=== PATIENT | female | born 1935 | race Caucasian/White ===

== ENCOUNTER → 2016-10-05 | Outpatient (CLI) | payer OTHER ==
[~2016-10-05] MED LIST: APR25 PO; ASCA500 PO; ATV5 PO; BXN500 PO; CTP1CL PO; CZR50 PO; FAMO1TAB47 PO; GLUC1CAP35 PO; MISCCAP80 PO; VTMD1000 PO
[2016-10-05 12:42] LABS: BASO % 0.6 %; BASO ABS # 0.05 K/uL (0-0.2); COMPLETE YES; EOS % 1.6 %; HEMATOCRIT 38.3 % (37-47); IG% 0.3 %; LYMPH % 27.7 %; LYMPH ABS # 2.39 K/uL (1.2-3.4); MEAN CELL VOLUME 89.3 fL (80-100); MEAN CORPUSCULAR HEMOGLOBIN 29.6 pg (25-34); MEAN CORPUSCULAR HGB CONC 33.2 g/dl (32-36); MEAN PLATELET VOLUME 10.8 fL (7.4-10.4); NEUT % 63.8 %; PLATELET COUNT 291 K/uL (130-400); RED BLOOD COUNT 4.29 M/uL (4.2-5.4); WHITE BLOOD COUNT 8.63 K/uL (4.8-10.8)
[2016-10-05 13:22] LABS: ALT/SGPT 47 U/L (12-78); AST/SGOT 31 U/L (15-37); BLOOD UREA NITROGEN 16 mg/dl (7-18); BUN/CREATININE RATIO 17.6 (10-20); CALCIUM 8.7 mg/dl (8.5-10.1); CARBON DIOXIDE 24 mmol/L (21-32); CHLORIDE 109 mmol/L (98-107); CHOLESTEROL 238 mg/dl (0-200); CREATININE 0.92 mg/dl (0.60-1.20); GLUCOSE 90 mg/dl (70-99); POTASSIUM 3.6 mmol/L (3.5-5.1); SODIUM 143 mmol/L (136-145); TRIGLYCERIDES 147 mg/dl (0-150); VERY LOW DENSITY LIPOPROT CALC 29 mg/dl
[2016-10-05 13:32] LABS: ALB/GLOB RATIO 0.8 (0.9-2); ALKALINE PHOSPHATASE 134 U/L (45-117); CHOLESTEROL/HDL RATIO 3.4; HDL CHOLESTEROL 71 mg/dl; LDL CHOLESTEROL CALCULATED 138 mg/dl
[2016-10-05 15:19] LABS: LYME DISEASE AB IGG POS (NEG); LYME DISEASE AB IGM POS (NEG)
[2016-10-09 22:50] LABS: 18KDIGG BAND REACTIVE (NONREACTIVE); 23KDIGG BAND NONREACTIVE (NONREACTIVE); 23KDIGM BAND REACTIVE (NONREACTIVE); 28KDIGG BAND NONREACTIVE (NONREACTIVE); 30KDIGG BAND NONREACTIVE (NONREACTIVE); 39KDIGG BAND NONREACTIVE (NONREACTIVE); 39KDIGM BAND NONREACTIVE (NONREACTIVE); 41KDIGG BAND REACTIVE (NONREACTIVE); 41KDIGM BAND NONREACTIVE (NONREACTIVE); 45KDIGG BAND NONREACTIVE (NONREACTIVE); 58KDIGG BAND REACTIVE (NONREACTIVE); 66KDIGG BAND NONREACTIVE (NONREACTIVE); 93KDIGG BAND NONREACTIVE (NONREACTIVE)
== END | disposition home or self-care (01) ==
LOC: C.LABBFT 11:29
PROVIDERS: ATTEND Internal Medicine Geriatric Medicine
DX: I10 Essential (primary) hypertension (principal); E78.5 Hyperlipidemia, unspecified; M79.7 Fibromyalgia; R21 Rash and other nonspecific skin eruption

== ENCOUNTER → 2017-01-12 | Outpatient (CLI) | payer OTHER ==
[2017-01-12 17:51] LABS: CALCIUM 9.1 mg/dl (8.5-10.1)
[2017-01-12 17:55] LABS: BLOOD UREA NITROGEN 19 mg/dl (7-18); BUN/CREATININE RATIO 19.4 (10-20); CARBON DIOXIDE 29 mmol/L (21-32); CHLORIDE 108 mmol/L (98-107); GLUCOSE 78 mg/dl (70-99); SODIUM 141 mmol/L (136-145)
[2017-01-13 05:53] LABS: ESTIMATED AVERAGE GLUCOSE 120 mg/dl; HA1C FLAG Normal (Normal)
--- NOTE | 2017-01-18 07:05 | CODING QUERY MEDICAL NECESSITY ---
SUPPORTING DIAGNOSIS NEEDED Salud JACKSON, A supporting diagnosis is required for the test/procedure performed on this patient in order for us to be reimbursed by the patient's insurance. Please provide a supporting diagnosis for the following test/procedure listed below next to the test name along with your signature. *If there is no additional diagnosis for this patient that would support the following test/procedure please document that below next to the test/procedure. Test(s)/Procedure(s) that require a supporting diagnosis: * ([id number]) B12 VITAMIN LEVEL DIAGNOSIS: * [id number] GLYCATED HEMOGLOBIN DIAGNOSIS: DATE OF SERVICE: 01/12/17 Provider Signature: Date: Thank you Jose Armando Fong Health Information Management Once completed, please kindly fax back to [phone] For questions please call [phone]
== END | disposition home or self-care (01) ==
LOC: C.LABBC 13:49
PROVIDERS: ATTEND Physician Assistant Medical
DX: M79.671 Pain in right foot (principal); M79.672 Pain in left foot; E55.9 Vitamin D deficiency, unspecified; I10 Essential (primary) hypertension; R20.2 Paresthesia of skin; R73.9 Hyperglycemia, unspecified

== ENCOUNTER 2017-02-13 16:10 | Emergency (ER) | payer OTHER ==
[~2017-02-13] VITALS: Ht 163.8 cm; Wt 65.8 kg
[~2017-02-13 16:10] MED LIST changes: -BXN500 PO; -CTP1CL PO; -CZR50 PO; -FAMO1TAB47 PO
[2017-02-13 16:23] VITALS: BP 160/86; PULSE 93; TEMP 36.4; O2SAT 96; Ht 163.8 cm; Wt 65.8 kg
[2017-02-13] MEDS ORDERED: CZR50 PO (16:46)
[2017-02-13] MEDS ORDERED: FAMO1TAB47 PO (16:46)
[2017-02-13] MEDS ORDERED: CTP1CL PO (16:46)
[2017-02-13] MEDS ORDERED: BXN500 PO (16:46)
--- NOTE | 2017-02-13 17:08 | EMERGENCY ROOM VISIT NOTE ---
History Report prepared by Vincenzo: Francis Noble Under the Supervision of: Dr. David Bucio D.O. First contact with patient: 16:48 Chief Complaint: ILLNESS Stated Complaint: SICK FROM CLARYTHROMYCIN History of Present Illness The patient is an 81 year old female who presents to the Emergency Room with complaints of a possible acute reaction to Clarithromycin. The patient had a tick bite three weeks ago. She has been on Clarithromycin for 10 days. She has 4 days left of the course. The patient has a history of allergies to many different antibiotics. She now complains several days of generalized malaise, mouth soreness, and a burning sensation in her stomach. She can barely swallow secondary to her mouth soreness. The patient's symptoms are similar to past reactions to antibiotics. She would like to stop taking the Clarithromycin before the course is finished. Source of History: patient Onset: several days ago Position: other (global) Quality: other (possible reaction to Clarithromycin) Timing: other (acute) Associated Symptoms: + abdominal pain Note: + mouth soreness, feeling generally unwell Review of Systems See HPI for pertinent positives & negatives. A total of 10 systems reviewed and were otherwise negative. Past Medical & Surgical Medical Problems: (1) Anxiety (2) Bronchitis (3) Hypertension (4) Hypertensive urgency (5) Lyme disease (6) Pneumonia (7) Rosacea (8) Ulcer Family History FHx: hypertension Social History Smoking Status: Never Smoker Alcohol Use: none Drug Use: none Marital Status: Housing Status: lives alone Occupation Status: retired Current/Historical Medications Scheduled Cholecalciferol (Vitamin D3), 1,000 UNITS PO DAILY Clarithromycin (Clarithromycin), 500 MG PO BID Famotidine (Famotidine), 20 MG PO BID Qpbgzobahag-Ymjkoxreruh-Udh C- (Glucosamine Chondroitin), 1 CAP PO DAILY Lorazepam (Ativan *), 0.5 MG PO Q6HR PRN Losartan Potassium (Losartan Potassium), 50 MG PO BID Probiotic Product (Probiotic), 1 CAP PO DAILY Allergies Coded Allergies: Amlodipine (Verified Allergy, Severe, CHEST HEAVINESS, BACK PAIN, 02/13/17) Lisinopril (Verified Allergy, Severe, CHEST HEAVINESS, BACK PAIN, 02/13/17) Telmisartan (Verified Allergy, Severe, CHEST HEAVINESS, BACK PAIN, 02/13/17 ) Liver (Verified Allergy, Intermediate, HIVES, 02/13/17) Phenylmercuric Nitrate (Verified Allergy, Intermediate, HIVES, 02/13/17) Shark Liver Oil (Verified Allergy, Intermediate, HIVES, 02/13/17) Sulfa Antibiotics (Verified Allergy, Intermediate, rash, 02/13/17) Acetaminophen (Verified Allergy, Unknown, UNKNOWN, 02/13/17) Clarithromycin (Unverified Allergy, Unknown, RASH, COTTON MOUTH, 02/13/17) Doxycycline (Verified Allergy, Unknown, UNK, 02/13/17) Penicillins (Verified Allergy, Unknown, UNKNOWN, 02/13/17) Physical Exam Vital Signs Date Time Temp Pulse Resp B/P (MAP) Pulse Ox O2 Delivery O2 Flow Rate FiO2 02/13/17 16:23 36.4 93 20 160/86 96 Room Air Physical Exam CONSTITUTIONAL/VITAL SIGNS: Reviewed / noted above. GENERAL: Non-toxic in appearance. INTEGUMENTARY: Warm, dry, and [place]. HEAD: Normocephalic. EYES: without scleral icterus or trauma. ENT/OROPHARYNX: clear and moist. LYMPHADENOPATHY/NECK: Is supple without lymphadenopathy or meningismus. RESPIRATORY: Lungs clear and equal. CARDIOVASCULAR: Regular rate and rhythm. GI/ABDOMEN: Soft and nontender. No organomegaly or pulsatile mass. No rebound or guarding. Normal bowel sounds. EXTREMITIES: Warm and well perfused. BACK: No CVA tenderness. NEUROLOGICAL: Intact without focal deficits. PSYCHIATRIC: normal affect. MUSCULOSKELETAL: Normally developed with good muscle tone. Medical Decision & Procedures ED Course 1655: Previous medical records were reviewed. The patient was evaluated in room A4b. A complete history and physical examination was performed. 1700: Discussed the discharge instructions with her. She understands and agrees with the plan. The patient is ready for discharge. Medical Decision Differential diagnosis: Etiologies such as metabolic, infection, hypo/hyperglycemia, electrolyte abnormalities, cardiac sources, intracerebral event, toxicologic, neurologic, as well as others were entertained. Blood pressure Screening: Patient was found to have an elevated blood pressure and was referred to their primary doctor for recheck and further treatment. Medication Reconciliation: I attest that I have personally reviewed the patient' s current medication list. The patient presents with a chief complaint of having side effects of antibiotics. She is on clarithromycin for the past 10 days for erythema migrans. She is requesting to stop the antibiotics. She has 4 more days prescribed. She is complaining of burning in her mouth, pain with swallowing and a burning sensation in her stomach. She says these are typical side effects that she has had previously with taking antibiotics. The patient denies any other significant symptoms. Her exam was unremarkable. She was told to discontinue her antibiotics. She is felt to be stable for discharge. Impression Primary Impression: Medication side effects Scribe Attestation The scribe's documentation has been prepared under my direction and personally reviewed by me in its entirety. I confirm that the note above accurately reflects all work, treatment, procedures, and medical decision making performed by me. Departure Information Dispostion Home / Self-Care Referrals Luigi Jiang M.D. (PCP) Patient Instructions My [facility] Additional Instructions Follow-up with your doctor for further care and evaluation in 1-2 days. Return to the emergency department for worsening or new symptoms or any concerns. You have been examined and treated today on an emergency basis only. This is not a substitute for, or an effort to provide, complete comprehensive medical care. It is impossible to recognize and treat all injuries or illnesses in a single emergency department visit. It is therefore important that you follow up closely with your doctor. Call as soon as possible for an appointment. Stop your antibiotics.
== END 2017-02-13 17:15 | disposition home or self-care (01) ==
LOC: C.EDB 16:11 → C.EDA 17:15
DX: R53.81 Other malaise (principal); T36.3X5A Adverse effect of macrolides, initial encounter; F41.9 Anxiety disorder, unspecified; I10 Essential (primary) hypertension; Z87.01 Personal history of pneumonia (recurrent); L71.9 Rosacea, unspecified; Z82.49 Family history of ischemic heart disease and other diseases of the circulatory system; Z79.899 Other long term (current) drug therapy

== ENCOUNTER → 2017-02-22 | Outpatient (CLI) | payer OTHER ==
[~2017-02-22] MED LIST changes: -APR25 PO; -ASCA500 PO; +BXN500 PO; +CZR50 PO; +FAMO1TAB47 PO
== END | disposition home or self-care (01) ==
LOC: C.LABBC 12:03
PROVIDERS: ATTEND Physician Assistant
DX: N94.9 Unspecified condition associated with female genital organs and menstrual cycle (principal)

== ENCOUNTER → 2017-07-31 | Outpatient (CLI) | payer OTHER ==
[~2017-07-31] MED LIST changes: +OPTIRAY 320 IV PRN
[2017-07-31 17:34] LABS: BASO % 0.5 %; BASO ABS # 0.05 K/uL (0-0.2); COMPLETE YES; EOS % 1.7 %; HEMATOCRIT 38.4 % (37-47); IG% 0.3 %; LYMPH % 29.5 %; MEAN CELL VOLUME 91.4 fL (80-100); MEAN CORPUSCULAR HEMOGLOBIN 30.7 pg (25-34); MEAN CORPUSCULAR HGB CONC 33.6 g/dl (32-36); MEAN PLATELET VOLUME 10.7 fL (7.4-10.4); MONO % 7.2 %; NEUT % 60.8 %; PLATELET COUNT 349 K/uL (130-400); WHITE BLOOD COUNT 9.15 K/uL (4.8-10.8)
[2017-07-31 17:41] LABS: URINE APPEARANCE CLEAR (CLEAR); URINE BILIRUBIN NEG (NEG); URINE COLOR YELLOW; URINE EPITHELIAL CELL AUTO 0-5 /lpf (0-5); URINE NITRITE NEG (NEG); URINE PH 6.5 (4.5-7.5); URINE SPECIFIC GRAVITY 1.009 (1.000-1.030); UROBILINOGEN NEG (NEG)
[2017-07-31 17:44] LABS: MANUAL MICROSCOPIC REQUIRED? NO; REVIEW REQ? NO
[2017-07-31 18:08] LABS: ALT/SGPT 37 U/L (12-78); BLOOD UREA NITROGEN 18 mg/dl (7-18); BUN/CREATININE RATIO 18.4 (10-20); CALCIUM 9.2 mg/dl (8.5-10.1); CARBON DIOXIDE 28 mmol/L (21-32); CHLORIDE 105 mmol/L (98-107); CREATININE 0.97 mg/dl (0.60-1.20); GLUCOSE 91 mg/dl (70-99); POTASSIUM 3.7 mmol/L (3.5-5.1); SODIUM 139 mmol/L (136-145)
[2017-07-31 18:10] LABS: ALB/GLOB RATIO 0.8 (0.9-2); ALKALINE PHOSPHATASE 139 U/L (45-117); AST/SGOT 31 U/L (15-37)
--- NOTE | 2017-07-31 19:37 | DIAGNOSTIC IMAGING REPORT ---
CT ABD/PELVIS IV AND ORAL CONT CLINICAL HISTORY: Generalized abdominal pain. Possible diverticulitis. COMPARISON STUDY: 12/20/2015 TECHNIQUE: Following the IV administration of 90 mL of Optiray-320, CT scan of the abdomen and pelvis was performed from the lung bases to the proximal femurs. Images are reviewed in the axial, sagittal, and coronal planes. IV contrast was administered without complication. A dose lowering technique was utilized adhering to the principles of ALARA. CT DOSE: 298.44 mGy.cm FINDINGS: Lower chest: There are minor basilar atelectatic changes Liver: The contrast-enhanced liver is normal in size, contour, and attenuation. There is no intrahepatic biliary ductal dilatation. The hepatic veins and portal veins are patent. Gallbladder: There are equivocal layering tiny gallstones Spleen: Normal in size and attenuation. Pancreas: Unremarkable. Adrenal glands: Unremarkable. Kidneys: There is symmetric renal cortical enhancement. The kidneys are normal in size without hydronephrosis. Bowel: There are no transition zones indicate bowel obstruction. The appendix appears normal. There is colonic diverticulosis. There is mild sigmoid wall thickening likely secondary to peridiverticular muscular hypertrophy. There are no peridiverticular inflammatory changes. Peritoneum: There is no intraperitoneal free air or abdominal ascites. Vasculature: The abdominal aorta is normal in course and caliber. Adenopathy: None. Pelvic viscera: The bladder, and pelvic viscera are unremarkable. Skeletal structures: No destructive osseous lesions are seen. IMPRESSION: 1. No evidence of bowel obstruction. No evidence of free air 2. Normal appendix 3. Diverticulosis. Mild sigmoid wall thickening, likely secondary to peridiverticular muscular hypertrophy. No peridiverticular inflammatory changes are visualized Electronically signed by: Cameron Phillips M.D. 07/31/2017 7:36 PM Dictated Date/Time: 07/31/2017 7:33 PM
[2017-08-01 08:05] LABS: ESTIMATED AVERAGE GLUCOSE 120 mg/dl; HA1C FLAG Normal (Normal)
== END | disposition home or self-care (01) ==
LOC: C.CTS 16:50
PROVIDERS: ATTEND Physician Assistant
DX: R10.9 Unspecified abdominal pain (principal); E55.9 Vitamin D deficiency, unspecified; R73.9 Hyperglycemia, unspecified; K57.30 Diverticulosis of large intestine without perforation or abscess without bleeding

== ENCOUNTER → 2018-03-14 | Outpatient (CLI) | payer OTHER ==
[~2018-03-14] MED LIST changes: -OPTIRAY 320 IV PRN
[2018-03-14 17:20] LABS: BASO % 0.9 %; BASO ABS # 0.06 K/uL (0-0.2); EOS % 2.1 %; EOS ABS # 0.15 K/uL (0-0.5); HEMATOCRIT 38.2 % (37-47); HEMOGLOBIN 12.2 g/dL (12.0-16.0); IG# 0.03 K/uL (0.00-0.02); LYMPH % 33.7 %; LYMPH ABS # 2.36 K/uL (1.2-3.4); MEAN CORPUSCULAR HEMOGLOBIN 29.4 pg (25-34); MEAN CORPUSCULAR HGB CONC 31.9 g/dl (32-36); MEAN PLATELET VOLUME 11.6 fL (7.4-10.4); MONO % 7.3 %; MONO ABS # 0.51 K/uL (0.11-0.59); NEUT % 55.6 %; PLATELET COUNT 310 K/uL (130-400); RED CELL DISTRIBUTION WIDTH CV 13.1 % (11.5-14.5); RED CELL DISTRIBUTION WIDTH SD 43.8 fL (36.4-46.3); WHITE BLOOD COUNT 7.01 K/uL (4.8-10.8)
[2018-03-14 17:49] LABS: ALBUMIN 3.5 gm/dl (3.4-5.0); ALKALINE PHOSPHATASE 116 U/L (45-117); ALT/SGPT 26 U/L (12-78); AST/SGOT 20 U/L (15-37); BLOOD UREA NITROGEN 20 mg/dl (7-18); CALCIUM 8.9 mg/dl (8.5-10.1); CARBON DIOXIDE 26 mmol/L (21-32); CREATININE 1.02 mg/dl (0.60-1.20); GLUCOSE 84 mg/dl (70-99); SODIUM 140 mmol/L (136-145); TOTAL PROTEIN 7.7 gm/dl (6.4-8.2)
== END | disposition home or self-care (01) ==
LOC: C.LABBFT 11:38
PROVIDERS: ATTEND Internal Medicine Geriatric Medicine
DX: I10 Essential (primary) hypertension (principal); M79.7 Fibromyalgia; M19.90 Unspecified osteoarthritis, unspecified site; E78.5 Hyperlipidemia, unspecified; F41.9 Anxiety disorder, unspecified; R51 Headache; R73.9 Hyperglycemia, unspecified; I65.29 Occlusion and stenosis of unspecified carotid artery; R10.9 Unspecified abdominal pain

== ENCOUNTER 2024-03-30 20:45 | Inpatient (IN) ==
[2024-03-30 22:04] LABS: iSTAT Creatinine 1.4 mg/dl (0.6-1.3); iSTAT Hemoglobin 11.9 g/dl (12.0-16.0); iSTAT Ionized Calcium 1.15 mmol/l (1.12-1.32); iSTAT Potassium 4.2 mmol/L (3.3-5.0)
[2024-03-30 22:10] LABS: Basophils # (auto) 0.05 K/uL (0.00-0.20); Basophils % (auto) 0.7 %; Eosinophils # (auto) 0.17 K/uL (0.00-0.50); Eosinophils % (auto) 2.4 %; Hemoglobin 10.9 g/dl (12.0-16.0); Immature Granulocytes # (auto) 0.02 K/uL (0.01-0.20); Immature Granulocytes % (auto) 0.3 %; Lymphocytes # (auto) 1.84 K/uL (1.20-3.40); Lymphocytes % (auto) 25.4 %; Mean Corpuscular Hemoglobin 28.8 pg (25.0-34.0); Mean Corpuscular Hgb Conc 34.1 g/dL (32.0-36.0); Mean Corpuscular Volume 84.4 fL (80.0-100.0); Mean Platelet Volume 10.2 fL (9.4-12.4); Monocytes # (auto) 0.64 K/uL (0.11-0.59); Monocytes % (auto) 8.9 %; Neutrophils # (auto) 4.51 K/uL (1.40-6.50); Neutrophils % (auto) 62.3 %; Platelet Count 368 K/uL (130-400); RDW Coefficient of Variation 11.9 % (11.5-14.5); RDW Standard Deviation 36.4 fL (36.4-46.3); Red Blood Count 3.79 M/uL (4.20-5.40); White Blood Count 7.23 K/ul (4.8-10.8)
[2024-03-30 22:24] LABS: Albumin Globulin Ratio 1.4 (0.9-2); Albumin Level 4.1 gm/dl (3.4-5.0); BUN Creatinine Ratio 14.6 (10-20); Bilirubin,Total 0.6 mg/dl (0.2-1.0); Calcium 9.3 mg/dl (8.6-10.3); Creatinine Clr Calc Pharmacy 25.8 ml/min; Est GFR (African American) 42.4 ml/min; Est GFR (Non-African American) 36.6 ml/min; Globulin 2.9 gm/dl (2.5-4.0); Potassium 4.1 mmol/L (3.5-5.1)
[2024-03-30] MEDS: OPTIRAY 320 100ml IV ONE (22:26)
[2024-03-30 22:30] LABS: Troponin I High Sensitivity 4.7 pg/ml (0-14)
[2024-03-30 22:32] LABS: Appearance Urine Clear (Clear); Bacteria Urine Automated None Seen (None Seen); Bilirubin Urine Negative (Negative); Blood Urine Negative (Negative); Cast Urine Automated 0-2 /lpf (0-2); Color Urine Yellow; Epithelial Cell Urine Auto 0-2 /hpf (0-2); Glucose Urine UA Negative (Negative); Ketones Urine Negative (Negative); Leukocyte Esterase Urine Trace (Negative); Nitrite Urine Negative (Negative); Protein Urine Negative (Negative); RBC Urine Automated 0-2 /hpf (0-2); Specific Gravity Urine 1.009 (1.000-1.030); Urobilinogen Urine Negative (Negative); WBC Urine Automated 0-5 /hpf (0-5); pH Urine 5.5 (4.5-7.5)
--- NOTE | 2024-03-30 22:32 | Emergency Department Note ---
Impression & Plan Acute hyponatremia, Left low back pain ED Provider Note Provider: Ruben Prakash MD DATE OF SERVICE: 03/30/2024 CHIEF COMPLAINT: Left low back pain, not sleeping, decreased appetite, fatigue HISTORY OF PRESENT ILLNESS: Patient is a 88-year-old female history of GERD, fibromyalgia, diverticulitis, hypertension presenting here today with daughter reporting not feeling well for the last several days. Not sleeping well having pain in the left back region. Not much in the left abdomen. Occasionally little bit of twinges suprapubic region. Recently took a dose of Diflucan as she think she is yeast infection for recent antibiotic for diverticulitis but she is not sure this has cleared up. No fevers. Did have some nausea with the antibiotics. Not eating well. Has been try to hydrate with water. Primary care's was a rider with additional nausea medicine and Diflucan but did not arrive to the pharmacy today when daughter went to pick it up. Came here for evaluation this evening. No falls reported. No pain down the legs. No right- sided pain. PAST MEDICAL HISTORY: As noted above MEDICATIONS: Reviewed home medications SOCIAL HISTORY: Lives at home with grandson and basement PHYSICAL EXAM: GENERAL: alert and oriented in no acute distress on stretcher Head: normocephalic and atraumatic EYES: No injection, discharge or icterus. EOMI. NECK: Trachea midline. ENT: Mucous membranes pink and moist. LUNGS: Airway patent. No retractions. Breath sounds clear with good air entry bilaterally. HEART: Regular rate and rhythm. No chest wall tenderness ABDOMEN: Soft some slight mid to left lower quadrant tenderness. BACK: No midline tenderness, no SI joint tenderness. No bilateral flank tenderness. SKIN: Acyanotic, warm, dry, without rashes EXTREMITIES: Without swelling, tenderness or deformity NEUROLOGICAL: No focal deficits. No aphasia. No facial droop or slurred speech. Ambulatory. EK bpm sinus rhythm first-degree AV block. No acute ST segment elevation or depression with a QTc of 414. CONTINUOUS CARDIAC MONITORING: was ordered and showed a heart rate of 60s-80s bpm in sinus rhythm first-degree AV block Patient's laboratory studies and imaging reviewed. Differential includes Appendicitis, infections, diverticulitis, UTI, obstruction, mesenteric ischemia, aortic pathology, inflammatory bowel disease, renal colic, PUD, pancreatitis, biliary pathology, hernia, volvulus, constipation, metabolic abnormality, musculoskeletal pain, as well as other pathologies. IMPRESSION/MEDICAL DECISION MAKING: Patient recent antibiotics some pain in the left lower back region but not that reproducible. Not sciatic in nature. Question intra-abdominal or pelvic issue possibly prolonged diverticulitis. No fevers or trauma reported. Minimal to slight abdominal discomfort. Given age and history will obtain CT scan. Blood work here without significant anemia or leukocytosis. New significant hyponatremia 122. Has been hydrating with a lot of water but not eating well may be contributing. Awesome sent. No evidence of acute hepatitis or pancreatitis. Troponin EKG reassuring. Urinalysis without findings of infection. Negative COVID testing here. Discussed with patient daughter findings. Do recommend we bring her in for treatment with the severe hyponatremia. Does seem little bit anxious as well could be contributing. CT abdomen pelvis without clear findings of infection at this point improved inflammation in the diverticular region. Will hold off on antibiotics. Discussed the patient need to stay with hyponatremia and likely complaints of generalized fatigue. Hospitalist was consulted. Does not appear significantly fluid overloaded. Will defer any sodium or saline therapy to the hospitalist team. DIAGNOSIS: Hyponatremia, left lower back pain DISPOSITION: Hospitalist will evaluate Patient was agreeable with this plan. Past Med/Surg History Problem List (Updated 03/31/24 @ 00:44 by Ruben Prakash M.D.) Left low back pain (Acute) Acute hyponatremia (Acute) Diverticulitis Post-nasal drip Macular degeneration of right eye Cervical polyp Atrophic vaginitis Vaginal burning Hypertension (Chronic) Rosacea (Chronic) High cholesterol (Chronic) GERD (gastroesophageal reflux disease) (Chronic) Anxiety (Chronic) Fibromyalgia (Chronic) Depression (Chronic) Cervical spondylosis (Chronic) Cervical radiculitis (Chronic) Myofascial pain Vitamin D deficiency (Acute) Osteoporosis (Acute) Multiple pulmonary nodules (Acute) Lichen sclerosus et atrophicus (Acute) Insomnia (Acute) Chronic osteoarthritis (Acute) Carpal tunnel syndrome (Acute) Carotid atherosclerosis (Acute) Left knee pain Prediabetes Partial thickness burn of toe (Acute) Medical History Postmenopausal atrophic vaginitis Mitral valve prolapse History of mitral valve prolapse History of Lyme disease History of irritable bowel syndrome History of diverticulitis Amaurosis fugax History of diverticulosis Bilateral cataracts HTN (hypertension), benign Hypertensive urgency Pneumonia Surgical History H/O oral surgery H/O tubal ligation S/P cataract surgery S/P cardiac cath (~2001) normal coronary arteries Family History Mother Stomach cancer Son Bipolar disorder Hyperlipidemia Hypertension Suicide Brother Parkinson disease Father Myocardial infarction Denies family history of Ovarian cancer Prostate cancer Breast cancer Colorectal cancer Social History Smoking Status: Never smoker Second Hand Exposure: No; Do You Dip or Chew Tobacco: No; Hx Alcohol Use: No Hx Substance Use: No Preferred Language: [place] Communication Ability: Effective Visual Impairment: No Limitations Hearing Ability: Normal [employer] Required: No Beliefs That Will Affect Care: None marital status: Current Living Situation: Alone current occupational status: retired Feels Safe at Home: Yes Childhood Exposure to Second-Hand Smoke: No Diet: regular caffeine: No during the past year weight has: remained stable Dental Care, Regularly: Yes Physical Activity Frequency: Daily Seatbelt Use: always Sunscreen Use: Yes Assistive Devices: Glasses Allergies Allergies Allergy/AdvReac Type Severity Reaction Status Date / Time amlodipine Allergy Severe CHEST Verified 03/31/24 00:22 HEAVINESS, BACK PAIN lisinopril Allergy Severe CHEST Verified 03/31/24 00:22 HEAVINESS, BACK PAIN telmisartan Allergy Severe CHEST Verified 03/31/24 00:22 HEAVINESS, BACK PAIN shark liver oil Allergy Intermediate HIVES Verified 03/31/24 00:22 Sulfa (Sulfonamide Allergy Intermediate rash Verified 03/31/24 00:22 Antibiotics) acetaminophen Allergy Unknown UNKNOWN Verified 03/31/24 00:22 cephalexin [From Keflex] Allergy Unknown Unknown Verified 03/31/24 00:22 ciprofloxacin [From Cipro] Allergy Unknown Unknown Verified 03/31/24 00:22 clarithromycin Allergy Unknown RASH, Verified 03/31/24 00:22 COTTON MOUTH doxycycline Allergy Unknown UNK Verified 03/31/24 00:22 erythromycin base Allergy Unknown Unknown Verified 03/31/24 00:22 fexofenadine [From Krystin] Allergy Unknown Unknown Verified 03/31/24 00:22 gabapentin [From Neurontin] Allergy Unknown Unknown Verified 03/31/24 00:22 ibuprofen [From Advil] Allergy Unknown Unknown Verified 03/31/24 00:22 labetalol Allergy Unknown Unknown Verified 03/31/24 00:22 liver extract Allergy Unknown Unknown Verified 03/31/24 00:22 metoprolol [From Toprol XL] Allergy Unknown Unknown Verified 03/31/24 00:22 nortriptyline [From Pamelor] Allergy Unknown Unknown Verified 03/31/24 00:22 Penicillins Allergy Unknown UNKNOWN Verified 03/31/24 00:22 propranolol Allergy Unknown Unknown Verified 03/31/24 00:22 rabeprazole [From AcipHex] Allergy Unknown Unknown Verified 03/31/24 00:22 spironolactone Allergy Unknown Unknown Verified 03/31/24 00:22 sulfacetamide Allergy Unknown Unknown Verified 03/31/24 00:22 [From Sulfamide] tramadol Allergy Unknown Unknown Verified 03/31/24 00:22 [id number]-[id number]-FwS Reductase AdvReac Intermediate jittery Verified 03/31/24 00:22 Inhibitor [Gvsphoj-Czq-Lkl Reductase Inhibitor] bisoprolol AdvReac Unknown Verified 03/31/24 00:22 Liver Allergy Intermediate HIVES Uncoded 03/31/24 00:22 Phenylmercuric Nitrate Allergy Intermediate HIVES Uncoded 03/31/24 00:22 "Almost all antibiotics" AdvReac Unknown Unknown Uncoded 03/31/24 00:22 Home Meds Home Medications Medication Instructions Recorded Confirmed ascorbic acid (vitamin C) 60 mg 60 mg PO QAM 10/10/21 03/31/24 lozenges cyanocobalamin (vitamin B-12) 500 500 mcg PO QAM 10/10/21 03/31/24 mcg tablet (Vitamin B-12) vit C 250 mg-vit E 90 mg-zinc 40 1 tab PO QAM 10/10/21 03/31/24 mg-copper 1 [id number] capsule (PreserVision AREDS-2) clindamycin phosphate 1 % topical 1 applic topical DAILY PRN .flare 03/31/24 03/31/24 gel ups clobetasol 0.05 % topical ointment 1 applic topical BID PRN flare ups 03/31/24 03/31/24 hydralazine 10 mg tablet 10 mg PO TID 03/31/24 03/31/24 Previous Rx's Medication Instructions Recorded hydrocortisone 2.5 % topical 1 applic topical BID PRN skin 04/18/23 ointment irritation #28.35 grams losartan 50 mg tablet 25 mg (1/2 x 50 mg) PO QID #180 08/03/23 tabs chlorthalidone 25 mg tablet 25 mg PO DAILY hypertension #90 12/13/23 tabs famotidine 20 mg tablet (Pepcid) 20 mg PO QAM #90 tabs 01/12/24 Results & Data (ED) Vital Signs Vital Signs - 24 hr 03/30/24 20:50 03/30/24 21:30 03/30/24 22:08 Temperature 36.4 C L Temperature Source Temporal Artery Scan Pulse Rate 74 66 Pulse Rate [Apical] Respiratory Rate 20 Respiratory Depth Blood Pressure 159/76 H Blood Pressure [Right Arm] Blood Pressure Mean 103 Blood Pressure Mean [Right Arm] Pulse Oximetry 96 Oxygen Delivery Method Room Air Room Air Sepsis Recent Fever Within 48 Hours No Sepsis New/Unexplained Change in Mental Status No Sepsis Action Taken by Nursing No Action Required 03/30/24 23:00 Temperature Temperature Source Pulse Rate Pulse Rate [Apical] 65 Respiratory Rate 18 Respiratory Depth Normal Blood Pressure Blood Pressure [Right Arm] 161/79 H Blood Pressure Mean Blood Pressure Mean [Right Arm] 106 Pulse Oximetry 98 Oxygen Delivery Method Room Air Sepsis Recent Fever Within 48 Hours Sepsis New/Unexplained Change in Mental Status Sepsis Action Taken by Nursing Laboratory Data 03/30/24 21:47 03/30/24 21:47 Lab Results 03/30/24 03/30/24 03/30/24 Range/Units 21:47 21:52 22:08 WBC 7.23 (4.8-10.8) K/ul RBC 3.79 L (4.20-5.40) M/uL Hgb 10.9 L (12.0-16.0) g/dl POC Hgb 11.9 L (12.0-16.0) g/dl Hct 32.0 L (37.0-47.0) % POC Hct 35 L (37-47) % MCV 84.4 (80.0-100.0) fL MCH 28.8 (25.0-34.0) pg MCHC 34.1 (32.0-36.0) g/dL RDW Std Deviation 36.4 (36.4-46.3) fL RDW Coeff of Eran 11.9 (11.5-14.5) % Plt Count 368 (130-400) K/uL MPV 10.2 (9.4-12.4) fL Immature Gran % (Auto) 0.3 % Neut % (Auto) 62.3 % Lymph % (Auto) 25.4 % [place] % (Auto) 8.9 % Eos % (Auto) 2.4 % Baso % (Auto) 0.7 % Neut # (Auto) 4.51 (1.40-6.50) K/uL Lymph # (Auto) 1.84 (1.20-3.40) K/uL [place] # (Auto) 0.64 H (0.11-0.59) K/uL Eos # (Auto) 0.17 (0.00-0.50) K/uL Baso # (Auto) 0.05 (0.00-0.20) K/uL Immature Gran # (Auto) 0.02 (0.01-0.20) K/uL PT 10.3 (9.0-12.0) Seconds INR 0.9 (0.9-1.1) POC Sodium 124 L (135-144) mmol/L Sodium 122 L (136-145) mmol/L POC Potassium 4.2 (3.3-5.0) mmol/L Potassium 4.1 (3.5-5.1) mmol/L POC Chloride 91 L (101-112) mmol/L Chloride 90 L (98-107) mmol/L Carbon Dioxide 24 (21-32) mmol/L POC Total CO2 23 L (24-31) mmol/L Anion Gap 8 (3-11) POC Anion Gap 15.0 L (16-25) mmol/L POC BUN 20 H (7-18) mg/dl BUN 19 (6-23) mg/dl Creatinine 1.30 H (0.6-1.2) mg/dl POC Creatinine 1.4 H (0.6-1.3) mg/dl Est Cr Clr Drug Dosing 25.8 ml/min Est GFR ( Amer) 42.4 ml/min Est GFR (Non-Af Amer) 36.6 ml/min BUN/Creatinine Ratio 14.6 (10-20) Glucose 104 H (70-99(Fasting)) mg/dl POC Glucose (other) 101 H (70-99) mg/dl Osmolality 264 L (280-300) mOsm/kg Calcium 9.3 (8.6-10.3) mg/dl POC Ioniz Calcium Robin 1.15 (1.12-1.32) mmol/l Total Bilirubin 0.6 (0.2-1.0) mg/dl AST 22 (13-39) U/L ALT 12 (7-52) U/L Alkaline Phosphatase 68 (34-104) U/L Troponin I High Sens 4.7 (0-14) pg/ml Total Protein 7.0 (6.0-8.3) gm/dl Albumin 4.1 (3.4-5.0) gm/dl Globulin 2.9 (2.5-4.0) gm/dl Albumin/Globulin Ratio 1.4 (0.9-2) Lipase 49 (11-82) U/L TSH 2.654 (0.300-4.500) uIu/ml Urine Color Yellow Urine Appearance Clear (Clear) Urine pH 5.5 (4.5-7.5) Ur Specific [place] 1.009 (1.000-1.030) Urine Protein Negative (Negative) Urine Glucose (UA) Negative (Negative) Urine Ketones Negative (Negative) Urine Blood Negative (Negative) Urine Nitrite Negative (Negative) Urine Bilirubin Negative (Negative) Urine Urobilinogen Negative (Negative) Ur Leukocyte Esterase Trace H (Negative) Urine WBC (Auto) 0-5 (0-5) /hpf Urine RBC (Auto) 0-2 (0-2) /hpf U Hyaline Cast (Auto) 0-2 (0-2) /lpf U Epithel Cells (Auto) 0-2 (0-2) /hpf Urine Bacteria (Auto) None Seen (None Seen) Urine Osmolality 239 L (500-800) mOsm/kg Ur Random Sodium 38 mmol/L SARS-CoV-2, RNA, NAAT NEGATIVE (NEGATIVE) Administered Medications Discontinued Medications Ioversol (Optiray 320 100ml) 92 ml IV ONCE ONE Stop: 03/30/24 22:27 Last Admin: 03/30/24 22:26 Dose: 92 ml Documented By: [facility] Data Radiologist's Impression: Abdomen/Pelvis CT 03/30/24 21:30 Exam(s): CT ABDOMEN + PELVIS With Contrast IV Amt: 92 ml optiray 320 EXAM: CT Abdomen and Pelvis With Intravenous Contrast CLINICAL HISTORY: Reason for exam: LLQ pain to back hip, recent diverticulitis. TECHNIQUE: Axial computed tomography images of the abdomen and pelvis with intravenous contrast. CTDI is 13.82 mGy and DLP is 598.4 mGy-cm. Automated exposure control was utilized for the study. A dose lowering technique was utilized adhering to the principles of ALARA. CONTRAST: Patient received 92 ml optiray 320 of IV contrast COMPARISON: CT abdomen pelvis 02/27/24. FINDINGS: Lung bases: Clear. Liver: Fatty. Gallbladder and bile ducts: Normal gallbladder. No ductal dilation. Pancreas: No ductal dilation. Spleen: Unremarkable. Adrenals: Unremarkable. Kidneys and ureters: No pyelonephritis or hydronephrosis. Stomach and bowel: Diverticulosis and diffuse wall thickening of the sigmoid colon. Previously noted mesenteric edema has improved. Minimal residual acute diverticulitis difficult to entirely exclude. No perforation or abscess. No obstruction. Appendix: Normal. Intraperitoneal space: No free air or fluid. Bones/joints: No acute fracture. Soft tissues: Unremarkable. Vasculature: No aortic aneurysm. Lymph nodes: No enlarged lymph nodes. Bladder: No stones. Reproductive: Unremarkable as visualized. IMPRESSION: 1. Improved mesenteric edema around the sigmoid colon, minimal residual acute diverticulitis difficult to exclude. 2. No perforation, abscess or other/definite acute finding. Electronically signed by: Shira Otoole M.D. 03/31/24 00:33 AM Discharge Plan Visit Data Chief Complaint: Back Injury/Pain Stated Complaint: LT HIP/LOWER BACK PAIN, 3 DAYS, POOR SLEEP ED Provider: Ruben Prakash Discharge Problem: Acute hyponatremia, Left low back pain Patient Disposition: Being Evaluated by Hospitalist Forms Stand Alone Forms: [employer] Prescriptions Prescriptions: No Action losartan 50 mg tablet 25 mg PO QID Qty: 180 3RF chlorthalidone 25 mg tablet 25 mg PO DAILY Qty: 90 3RF famotidine [Pepcid] 20 mg tablet 20 mg PO QAM Qty: 90 3RF hydrocortisone 2.5 % ointment 1 applic topical BID PRN (Reason: skin irritation) Qty: 28.35 1RF Vitamin C 60 mg Lozenge 60 mg PO QAM cyanocobalamin (vitamin B-12) [Vitamin B-12] 500 mcg Tablet 500 mcg PO QAM PreserVision AREDS-2 250-90-40-1 mg Capsule 1 tab PO QAM hydralazine 10 mg tablet 10 mg PO TID clindamycin phosphate 1 % gel 1 applic topical DAILY PRN (Reason: .flare ups) clobetasol 0.05 % ointment 1 applic topical BID PRN (Reason: flare ups) Referrals Referrals: Jose Armando Marroquin DO [Primary Care Provider] -
[2024-03-30 22:42] LABS: INR 0.9 (0.9-1.1); Prothrombin Time 10.3 Seconds (9.0-12.0)
[2024-03-30 23:19] LABS: Thyroid Stimulating Hormone 2.654 uIu/ml (0.300-4.500)
--- NOTE | 2024-03-30 23:42 | History & Physical Report ---
Date of Service March 30, 2024 Assessment & Plan (1) Acute hyponatremia: Plan: Tena Thomas is an 88yo female presenting with acute hyponatremia. Lx=[id number], last recorded normal at 138 on 02/27/24. Patient has recently been ill with acute diverticulitis - has not been eating well and has been drinking a lot of fluid at home. Patient also on Chlorthalidone for hypertension. She appears somewhat clinically dry on physical exam with dry mucus membranes and some skin tenting. Serum osmolality low at 264. Urine osmolality low at 239 with Urine Na=38 Acute hypovolemic hypotonic hyponatremia - likely due to decreased solute intake and chlorthalidone use -Admit to medical with telemetry -Check Mg and PO4 x 1 -Hold Chlorthalidone -NSS at 100mL/hr - 2L ordered -Monitor Na q 6 hours - goal to correct 8mEq/L over the next 24 hours (2) Hypertension: Plan: Blood pressure mildly elevated -Holding Chlorthalidone as above -Continue Hydralazine -Monitor Plan GERD - chronic. stable -Continue Famotidine History of Present Illness Chief Complaint: left back pain, hyponatremia Primary Care Provider: Jose Armando Marroquin DO Tena Thomas is an 88yo female withhistory of HTN, HLP and Fibromyalgia presenting from home with complaint of left back and hip pain as well as generally feeling "strange" Patient was seen in the ER on 02/27/24 and diagnosed with acute uncomplicated diverticulitis. Patient has multiple intolerances and allergies to medications therefore she initially opted to try to treat her acute diverticulitis with liquid diet and no antibiotics. She was drinking a lot of liquid, water, juice and soup and not eating anything for several weeks. Her symptoms persistently worsened so she was seen at Urgent Care on 03/15/24 and started on Cefuroxime 250mg po BID. She was also given a dose of Diflucan for possible yeast infection from the antibiotic. She had one day of diarrhea once she started the antibiotic but that has resolved. Patient's symptoms are overall improving. She was able to tolerate a normal diet over the last two days - ate oatmeal with prunes and banana for breakfast and chicken and vegetables for dinner. Her bowel movements have been fairly normal over the last two days. Today she dominguez some right sided back pain. Also complaining of feeling "strange" and "fuzzy", mild headache. She denies seizure, imbalance or confusion. No report of fever, chills, cough, SOB, chest pain. No additional complaints at this time. In the ER she is afebrile, HD stable, NAD Allergies Allergy/AdvReac Type Severity Reaction Status Date / Time amlodipine Allergy Severe CHEST Verified 03/31/24 00:22 HEAVINESS, BACK PAIN lisinopril Allergy Severe CHEST Verified 03/31/24 00:22 HEAVINESS, BACK PAIN telmisartan Allergy Severe CHEST Verified 03/31/24 00:22 HEAVINESS, BACK PAIN shark liver oil Allergy Intermediate HIVES Verified 03/31/24 00:22 Sulfa (Sulfonamide Allergy Intermediate rash Verified 03/31/24 00:22 Antibiotics) acetaminophen Allergy Unknown UNKNOWN Verified 03/31/24 00:22 cephalexin [From Keflex] Allergy Unknown Unknown Verified 03/31/24 00:22 ciprofloxacin [From Cipro] Allergy Unknown Unknown Verified 03/31/24 00:22 clarithromycin Allergy Unknown RASH, Verified 03/31/24 00:22 COTTON MOUTH doxycycline Allergy Unknown UNK Verified 03/31/24 00:22 erythromycin base Allergy Unknown Unknown Verified 03/31/24 00:22 fexofenadine [From Krystin] Allergy Unknown Unknown Verified 03/31/24 00:22 gabapentin [From Neurontin] Allergy Unknown Unknown Verified 03/31/24 00:22 ibuprofen [From Advil] Allergy Unknown Unknown Verified 03/31/24 00:22 labetalol Allergy Unknown Unknown Verified 03/31/24 00:22 liver extract Allergy Unknown Unknown Verified 03/31/24 00:22 metoprolol [From Toprol XL] Allergy Unknown Unknown Verified 03/31/24 00:22 nortriptyline [From Pamelor] Allergy Unknown Unknown Verified 03/31/24 00:22 Penicillins Allergy Unknown UNKNOWN Verified 03/31/24 00:22 propranolol Allergy Unknown Unknown Verified 03/31/24 00:22 rabeprazole [From AcipHex] Allergy Unknown Unknown Verified 03/31/24 00:22 spironolactone Allergy Unknown Unknown Verified 03/31/24 00:22 sulfacetamide Allergy Unknown Unknown Verified 03/31/24 00:22 [From Sulfamide] tramadol Allergy Unknown Unknown Verified 03/31/24 00:22 Hpoczqx-PAC-KaX Reductase AdvReac Intermediate jittery Verified 03/31/24 00:22 Inhibitor [Rmrkfcu-Jrs-Fbl Reductase Inhibitor] bisoprolol AdvReac Unknown Verified 03/31/24 00:22 Liver Allergy Intermediate HIVES Uncoded 03/31/24 00:22 Phenylmercuric Nitrate Allergy Intermediate HIVES Uncoded 03/31/24 00:22 "Almost all antibiotics" AdvReac Unknown Unknown Uncoded 03/31/24 00:22 Home Medications Medication Instructions Recorded Confirmed Type ascorbic acid (vitamin C) 60 mg 60 mg PO QAM 10/10/21 03/31/24 History lozenges cyanocobalamin (vitamin B-12) 500 500 mcg PO QAM 10/10/21 03/31/24 History mcg tablet (Vitamin B-12) vit C 250 mg-vit E 90 mg-zinc 40 1 tab PO QAM 10/10/21 03/31/24 History mg-copper 1 [id number] capsule (PreserVision AREDS-2) hydrocortisone 2.5 % topical 1 applic topical BID PRN skin 04/18/23 03/31/24 Rx ointment irritation #28.35 grams losartan 50 mg tablet 25 mg (1/2 x 50 mg) PO QID #180 08/03/23 03/31/24 Rx tabs chlorthalidone 25 mg tablet 25 mg PO DAILY hypertension #90 12/13/23 03/31/24 Rx tabs famotidine 20 mg tablet (Pepcid) 20 mg PO QAM #90 tabs 01/12/24 03/31/24 Rx clindamycin phosphate 1 % topical 1 applic topical DAILY PRN .flare 03/31/24 03/31/24 History gel ups clobetasol 0.05 % topical ointment 1 applic topical BID PRN flare ups 03/31/24 03/31/24 History hydralazine 10 mg tablet 10 mg PO TID 03/31/24 03/31/24 History Past Med/Surg History Problem List Acute hyponatremia (Acute) Diverticulitis Post-nasal drip Macular degeneration of right eye Cervical polyp Atrophic vaginitis Vaginal burning Hypertension (Chronic) Rosacea (Chronic) High cholesterol (Chronic) GERD (gastroesophageal reflux disease) (Chronic) Anxiety (Chronic) Fibromyalgia (Chronic) Depression (Chronic) Cervical spondylosis (Chronic) Cervical radiculitis (Chronic) Myofascial pain Vitamin D deficiency (Acute) Osteoporosis (Acute) Multiple pulmonary nodules (Acute) Lichen sclerosus et atrophicus (Acute) Insomnia (Acute) Chronic osteoarthritis (Acute) Carpal tunnel syndrome (Acute) Carotid atherosclerosis (Acute) Left knee pain Prediabetes Partial thickness burn of toe (Acute) Medical History Postmenopausal atrophic vaginitis Mitral valve prolapse History of mitral valve prolapse History of Lyme disease History of irritable bowel syndrome History of diverticulitis Amaurosis fugax History of diverticulosis Bilateral cataracts HTN (hypertension), benign Hypertensive urgency Pneumonia Surgical History H/O oral surgery H/O tubal ligation S/P cataract surgery S/P cardiac cath (~2001) normal coronary arteries Family History Mother Stomach cancer Son Bipolar disorder Hyperlipidemia Hypertension Suicide Brother Parkinson disease Father Myocardial infarction Denies family history of Ovarian cancer Prostate cancer Breast cancer Colorectal cancer Social History Smoking Status: Never smoker Second Hand Exposure: No; Do You Dip or Chew Tobacco: No; Hx Alcohol Use: No Hx Substance Use: No Preferred Language: Faroese Communication Ability: Effective Visual Impairment: No Limitations Hearing Ability: Normal 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: No Beliefs That Will Affect Care: None marital status: Current Living Situation: Alone current occupational status: retired Feels Safe at Home: Yes Childhood Exposure to Second-Hand Smoke: No Diet: regular caffeine: No during the past year weight has: remained stable Dental Care, Regularly: Yes Physical Activity Frequency: Daily Seatbelt Use: always Sunscreen Use: Yes Assistive Devices: Glasses Review of Systems Review of Systems: All systems reviewed & are unremarkable except as noted in HPI & below Physical Exam Physical Exam: General: patient resting comfortably, NAD, non-toxic in appearance, AA&O x 4 Skin: warm, dry, intact, no rashes or lesions HEENT: NC/AT, PERRL, EOMI, anicteric sclera, conjunctiva without injection, external ear normal to inspection and nontender, nares patent, dry mucus membranes, dentition intact, no oropharyngeal lesions, neck supple, trachea midline, no LAD, no thyromegaly, no JVD Heart: +S1/S2, regular, no m/r/g Lungs: equal air entry bilaterally, no rales/rhonchi/wheezes Abd: +BS, soft, ND, mild RLQ abdominal pain without rebound/guarding/peritonitis, no masses/organomegaly/ascites Ext: warm, 2+ pulses in UE/LE bilaterally, no clubbing/cyanosis or edema Neuro: nonfocal, patient AA&O x 4, speech intact, no facial droop, moving all extremities on command with equal strength 5/5 Results & Data Results & Data Vital Signs (Past 12 Hours) Vital Signs Temp Pulse Pulse Resp BP BP Pulse Ox 03/30/24 23:00 65 18 161/79 H 98 03/30/24 22:08 66 03/30/24 21:30 03/30/24 20:50 36.4 C L 74 20 159/76 H 96 O2 Del Method 03/30/24 23:00 Room Air 03/30/24 22:08 03/30/24 21:30 Room Air 03/30/24 20:50 Room Air Laboratory Results Laboratory Results WBC 7.23 K/ul (4.8-10.8) 03/30/24 21:47 RBC 3.79 M/uL (4.20-5.40) L 03/30/24 21:47 Hgb 10.9 g/dl (12.0-16.0) L 03/30/24 21:47 POC Hgb 11.9 g/dl (12.0-16.0) L 03/30/24 21:52 Hct 32.0 % (37.0-47.0) L 03/30/24 21:47 POC Hct 35 % (37-47) L 03/30/24 21:52 MCV 84.4 fL (80.0-100.0) 03/30/24 21:47 MCH 28.8 pg (25.0-34.0) 03/30/24 21:47 MCHC 34.1 g/dL (32.0-36.0) 03/30/24 21:47 RDW Std Deviation 36.4 fL (36.4-46.3) 03/30/24 21:47 RDW Coeff of Eran 11.9 % (11.5-14.5) 03/30/24 21:47 Plt Count 368 K/uL (130-400) 03/30/24 21:47 MPV 10.2 fL (9.4-12.4) 03/30/24 21:47 Immature Gran % (Auto) 0.3 % 03/30/24 21:47 Neut % (Auto) 62.3 % 03/30/24 21:47 Lymph % (Auto) 25.4 % 03/30/24 21:47 [place] % (Auto) 8.9 % 03/30/24 21:47 Eos % (Auto) 2.4 % 03/30/24 21:47 Baso % (Auto) 0.7 % 03/30/24 21:47 Neut # (Auto) 4.51 K/uL (1.40-6.50) 03/30/24 21:47 Lymph # (Auto) 1.84 K/uL (1.20-3.40) 03/30/24 21:47 [place] # (Auto) 0.64 K/uL (0.11-0.59) H 03/30/24 21:47 Eos # (Auto) 0.17 K/uL (0.00-0.50) 03/30/24 21:47 Baso # (Auto) 0.05 K/uL (0.00-0.20) 03/30/24 21:47 Immature Gran # (Auto) 0.02 K/uL (0.01-0.20) 03/30/24 21:47 PT 10.3 Seconds (9.0-12.0) 03/30/24 21:47 INR 0.9 (0.9-1.1) 03/30/24 21:47 POC Sodium 124 mmol/L (135-144) L 03/30/24 21:52 Sodium 122 mmol/L (136-145) L 03/30/24 21:47 POC Potassium 4.2 mmol/L (3.3-5.0) 03/30/24 21:52 Potassium 4.1 mmol/L (3.5-5.1) 03/30/24 21:47 POC Chloride 91 mmol/L (101-112) L 03/30/24 21:52 Chloride 90 mmol/L (98-107) L 03/30/24 21:47 Carbon Dioxide 24 mmol/L (21-32) 03/30/24 21:47 POC Total CO2 23 mmol/L (24-31) L 03/30/24 21:52 Anion Gap 8 (3-11) 03/30/24 21:47 POC Anion Gap 15.0 mmol/L (16-25) L 03/30/24 21:52 POC BUN 20 mg/dl (7-18) H 03/30/24 21:52 BUN 19 mg/dl (6-23) 03/30/24 21:47 Creatinine 1.30 mg/dl (0.6-1.2) H 03/30/24 21:47 POC Creatinine 1.4 mg/dl (0.6-1.3) H 03/30/24 21:52 Est Cr Clr Drug Dosing 25.8 ml/min 03/30/24 21:47 Est GFR ( Amer) 42.4 ml/min 03/30/24 21:47 Est GFR (Non-Af Amer) 36.6 ml/min 03/30/24 21:47 BUN/Creatinine Ratio 14.6 (10-20) 03/30/24 21:47 Glucose 104 mg/dl (70-99(Fasting)) H 03/30/24 21:47 POC Glucose (other) 101 mg/dl (70-99) H 03/30/24 21:52 Osmolality 264 mOsm/kg (280-300) L 03/30/24 21:47 Calcium 9.3 mg/dl (8.6-10.3) 03/30/24 21:47 POC Ioniz Calcium Robin 1.15 mmol/l (1.12-1.32) 03/30/24 21:52 Total Bilirubin 0.6 mg/dl (0.2-1.0) 03/30/24 21:47 AST 22 U/L (13-39) 03/30/24 21:47 ALT 12 U/L (7-52) 03/30/24 21:47 Alkaline Phosphatase 68 U/L (34-104) 03/30/24 21:47 Troponin I High Sens 4.7 pg/ml (0-14) 03/30/24 21:47 Total Protein 7.0 gm/dl (6.0-8.3) 03/30/24 21:47 Albumin 4.1 gm/dl (3.4-5.0) 03/30/24 21:47 Globulin 2.9 gm/dl (2.5-4.0) 03/30/24 21:47 Albumin/Globulin Ratio 1.4 (0.9-2) 03/30/24 21:47 Lipase 49 U/L (11-82) 03/30/24 21:47 TSH 2.654 uIu/ml (0.300-4.500) 03/30/24 21:47 Urine Color Yellow 03/30/24 22:08 Urine Appearance Clear (Clear) 03/30/24 22:08 Urine pH 5.5 (4.5-7.5) 03/30/24 22:08 Ur Specific [place] 1.009 (1.000-1.030) 03/30/24 22:08 Urine Protein Negative (Negative) 03/30/24 22:08 Urine Glucose (UA) Negative (Negative) 03/30/24 22:08 Urine Ketones Negative (Negative) 03/30/24 22:08 Urine Blood Negative (Negative) 03/30/24 22:08 Urine Nitrite Negative (Negative) 03/30/24 22:08 Urine Bilirubin Negative (Negative) 03/30/24 22:08 Urine Urobilinogen Negative (Negative) 03/30/24 22:08 Ur Leukocyte Esterase Trace (Negative) H 03/30/24 22:08 Urine WBC (Auto) 0-5 /hpf (0-5) 03/30/24 22:08 Urine RBC (Auto) 0-2 /hpf (0-2) 03/30/24 22:08 U Hyaline Cast (Auto) 0-2 /lpf (0-2) 03/30/24 22:08 U Epithel Cells (Auto) 0-2 /hpf (0-2) 03/30/24 22:08 Urine Bacteria (Auto) None Seen (None Seen) 03/30/24 22:08 Urine Osmolality 239 mOsm/kg (500-800) L 03/30/24 22:08 Ur Random Sodium 38 mmol/L 03/30/24 22:08 SARS-CoV-2, RNA, NAAT NEGATIVE (NEGATIVE) 03/30/24 22:08 Diagnostic Findings Awaiting read on Abdominal CT PG Care Time/CCT Total # of Minutes Spent Total Time Spent with Patient: Total time spent is greater than 50% in coordination of care (as documented) at patient's floor/unit and/or counseling patient: Coding Level of Care Code 88680 INT INP/OBS CARE 2/55MIN Diagnoses Acute hyponatremia E87.1 Hypertension I10 Hypertension type: unspecified (2) Hypertension Hypertension type: unspecified Qualified Code(s): I10 - Essential (primary) hypertension
--- NOTE | 2024-03-31 00:34 | CT Scan Report ---
Exam(s): CT ABDOMEN + PELVIS With Contrast IV Amt: 92 ml optiray 320 EXAM: CT Abdomen and Pelvis With Intravenous Contrast CLINICAL HISTORY: Reason for exam: LLQ pain to back hip, recent diverticulitis. TECHNIQUE: Axial computed tomography images of the abdomen and pelvis with intravenous contrast. CTDI is 13.82 mGy and DLP is 598.4 mGy-cm. Automated exposure control was utilized for the study. A dose lowering technique was utilized adhering to the principles of ALARA. CONTRAST: Patient received 92 ml optiray 320 of IV contrast COMPARISON: CT abdomen pelvis 02/27/24. FINDINGS: Lung bases: Clear. Liver: Fatty. Gallbladder and bile ducts: Normal gallbladder. No ductal dilation. Pancreas: No ductal dilation. Spleen: Unremarkable. Adrenals: Unremarkable. Kidneys and ureters: No pyelonephritis or hydronephrosis. Stomach and bowel: Diverticulosis and diffuse wall thickening of the sigmoid colon. Previously noted mesenteric edema has improved. Minimal residual acute diverticulitis difficult to entirely exclude. No perforation or abscess. No obstruction. Appendix: Normal. Intraperitoneal space: No free air or fluid. Bones/joints: No acute fracture. Soft tissues: Unremarkable. Vasculature: No aortic aneurysm. Lymph nodes: No enlarged lymph nodes. Bladder: No stones. Reproductive: Unremarkable as visualized. IMPRESSION: 1. Improved mesenteric edema around the sigmoid colon, minimal residual acute diverticulitis difficult to exclude. 2. No perforation, abscess or other/definite acute finding. Electronically signed by: Shira Otoole M.D. 03/31/24 00:33 AM
[2024-03-31] MEDS: SODIUM CHLORIDE 0.9% 1,000 ML IV SCH (02:00)
[2024-03-31 02:49] LABS: Magnesium 1.9 mg/dl (1.7-2.4); Phosphorus 3.2 mg/dl (2.5-4.9)
--- NOTE | 2024-03-31 07:02 | Electrocardiogram Report ---
Test Reason : Blood Pressure : / mmHG Vent. Rate : 061 BPM Atrial Rate : 061 BPM P-R Int : 250 ms QRS Dur : 060 ms QT Int : 412 ms P-R-T Axes : 054 041 059 degrees QTc Int : 414 ms Sinus rhythm with 1st degree A-V block Abnormal ECG When compared with ECG of 27-FEB-2024 15:47, Premature ventricular complexes are no longer Present VA interval has increased Confirmed by Chuck Huggins ([id number]) on 03/31/2024 7:02:42 AM Referred By: REFERRED SELF Confirmed By:Dg Huggins
[2024-03-31 07:26] LABS: Hematocrit (blood only) 31.6 % (37.0-47.0); Hemoglobin 10.6 g/dl (12.0-16.0); Mean Corpuscular Hemoglobin 29.2 pg (25.0-34.0); Mean Corpuscular Hgb Conc 33.5 g/dL (32.0-36.0); Mean Corpuscular Volume 87.1 fL (80.0-100.0); Mean Platelet Volume 10.3 fL (9.4-12.4); Platelet Count 345 K/uL (130-400); RDW Coefficient of Variation 11.9 % (11.5-14.5); RDW Standard Deviation 38.3 fL (36.4-46.3); Red Blood Count 3.63 M/uL (4.20-5.40); White Blood Count 5.18 K/ul (4.8-10.8)
[2024-03-31 07:43] LABS: BUN Creatinine Ratio 13.6 (10-20); Calcium 9.1 mg/dl (8.6-10.3); Creatinine Clr Calc Pharmacy 30.5 ml/min; Est GFR (African American) 51.9 ml/min; Est GFR (Non-African American) 44.8 ml/min
[2024-03-31] MEDS: LOSARTAN POTASSIUM 25 MG TAB PO SCH (08:23)
[2024-03-31] MEDS: FAMOTIDINE 20 MG TAB PO SCH (08:23)
[2024-03-31] MEDS: hydrALAZINE 10 MG TAB PO SCH (08:23)
[2024-03-31] MEDS: FLUCONAZOLE 50 MG TAB PO ONE (11:29)
[2024-03-31] MEDS: POLYETHYLENE (MIRALAX) 17 GM PACK PO SCH (11:29)
--- NOTE | 2024-03-31 15:24 | Hospitalist Progress Note ---
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 Sodium has improved to 129. IV fluids have been tapered down. Diuretic is currently on hold. Losartan has been discontinued. (2) Hypertension: Plan: Stable. Losartan discontinued. Will uptitrate hydralazine if needed (3) Diverticulitis: Plan: Completed recent treatment. (4) Lyndsey vaginitis: Plan: Oral Diflucan ordered (5) Anxiety state: Plan: Ativan orally as needed Plan To be determined. OT and PT assessments requested Admission and Anticipated Discharge Date Admission Date: March 30, 2024 Subjective Very anxious elderly female in no acute distress. She states she used to take Ativan on a as needed basis without any incident for her anxiety and this was recently taken away by a younger physician. This will be restarted to use as needed. Losartan has been discontinued due to her advanced age and its relative ineffectiveness. Will titrate hydralazine upward if necessary. Sodium improved to 129. Chlorthalidone is on hold. Creatinine normalized to 1.0. IV fluids taper down. OT and PT evaluations requested. She has requested another dose of oral Diflucan for Lyndsey vaginitis. Review of Systems 2 Review of Systems: Constitutional-no fever or chills ENT-no blurred vision, no double vision, no epistaxis, no sore throat Respiratory-no cough, no wheezing, no shortness of breath Cardiac-no palpitations, no chest pain, no syncope GI-no nausea, vomiting, diarrhea, melena, hematochezia -no urinary retention, no urinary incontinence, no dysuria, no hematuria Musculoskeletal-no joint pain, no muscle tenderness Skin-no bruising, no rashes, no pruritus Neuro-no isolated weakness, no paresthesia. Psych-no depression. She has chronic anxiety Physical Exam 2 Physical Exam: General-alert and oriented x3, no fever, no chills HEENT-head atraumatic and normocephalic, pupils equal and reactive to light, extraocular muscles intact Neck-no lymphadenopathy or thyromegaly, trachea midline Chest-clear to auscultation. No rales, wheezing or rhonchi Cardiac-regular rate and rhythm, normal S1 and S2 Abdomen-normal bowel sounds, no hepatosplenomegaly Extremities-no cyanosis, clubbing, or edema Neuro-cranial nerves II through XII intact, motor and sensory function within normal limits, strength symmetrical with generalized weakness consistent with age, no focal deficits Psych-anxious affect. Results & Data Results & Data Vital Signs (Past 12 Hours) Vital Signs Temp Pulse Pulse Resp BP Pulse Ox O2 Del Method 03/31/24 11:20 36.6 C 70 18 160/77 H 99 Room Air 03/31/24 07:40 36.5 C 61 18 147/72 H 98 Room Air 03/31/24 07:16 67 Laboratory Results 03/31/24 06:18 03/31/24 06:18 PG Care Time/CCT Total # of Minutes Spent Total Time Spent with Patient: Total time spent is greater than 50% in coordination of care (as documented) at patient's floor/unit and/or counseling patient: Coding Level of Care Code 63400 SUB INP/OBS CARE 3/50MIN Diagnoses Acute hyponatremia E87.1 Hypertension I10 Hypertension type: unspecified Diverticulitis K57.92 Lyndsey vaginitis B37.31 Anxiety state F41.1 (2) Hypertension Hypertension type: unspecified Qualified Code(s): I10 - Essential (primary) hypertension
[2024-03-31] MEDS: ONDANSETRON INJ 2 MG/ML 2 ML VIAL IV PRN (15:44)
[2024-03-31] MEDS: LORazepam 0.5 MG TAB PO PRN (21:56)
[2024-04-01 06:38] LABS: Basophils # (auto) 0.06 K/uL (0.00-0.20); Basophils % (auto) 1.2 %; Eosinophils # (auto) 0.16 K/uL (0.00-0.50); Eosinophils % (auto) 3.1 %; Hematocrit (blood only) 30.7 % (37.0-47.0); Hemoglobin 10.3 g/dl (12.0-16.0); Immature Granulocytes # (auto) 0.01 K/uL (0.01-0.20); Immature Granulocytes % (auto) 0.2 %; Lymphocytes # (auto) 1.36 K/uL (1.20-3.40); Lymphocytes % (auto) 26.3 %; Mean Corpuscular Hemoglobin 29.4 pg (25.0-34.0); Mean Corpuscular Hgb Conc 33.6 g/dL (32.0-36.0); Mean Corpuscular Volume 87.7 fL (80.0-100.0); Mean Platelet Volume 10.4 fL (9.4-12.4); Monocytes # (auto) 0.49 K/uL (0.11-0.59); Monocytes % (auto) 9.5 %; Neutrophils # (auto) 3.09 K/uL (1.40-6.50); Neutrophils % (auto) 59.7 %; Platelet Count 359 K/uL (130-400); RDW Coefficient of Variation 12.1 % (11.5-14.5); White Blood Count 5.17 K/ul (4.8-10.8)
[2024-04-01 06:54] LABS: BUN Creatinine Ratio 12.5 (10-20); Calcium 8.8 mg/dl (8.6-10.3); Creatinine Clr Calc Pharmacy 32.3 ml/min; Est GFR (African American) 55.6 ml/min; Est GFR (Non-African American) 47.9 ml/min
[2024-04-01] MEDS: hydrALAZINE 10 MG TAB PO ONE (10:25)
--- NOTE | 2024-04-01 14:52 | Discharge Summary ---
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 Sodium has improved to 129. IV fluids have been tapered down. Diuretic has been discontinued along with losartan discontinued. (2) Hypertension: Stable. Losartan discontinued. Hydralazine uptitrated today, April 01, to 25 mg twice a day. (3) Diverticulitis: Completed recent treatment. (4) Lyndsey vaginitis: Oral Diflucan given while hospitalized. Resolved (5) Anxiety state: Ativan 0.5 mg orally as needed. Well-tolerated Plan Home todayApril 01 Notes For Next Care Provider Medication Changes From Visit Chlorthalidone and losartan have been discontinued. Hydralazine is uptitrated to 25 mg twice daily. Ativan 0.5 mg every 8 hours as needed for anxiety was well-tolerated while hospitalized Admission HPI Per Admitting Provider Tena Thomas is an 88yo female withhistory of HTN, HLP and Fibromyalgia presenting from home with complaint of left back and hip pain as well as generally feeling "strange" Patient was seen in the ER on 02/27/24 and diagnosed with acute uncomplicated diverticulitis. Patient has multiple intolerances and allergies to medications therefore she initially opted to try to treat her acute diverticulitis with liquid diet and no antibiotics. She was drinking a lot of liquid, water, juice and soup and not eating anything for several weeks. Her symptoms persistently worsened so she was seen at Urgent Care on 03/15/24 and started on Cefuroxime 250mg po BID. She was also given a dose of Diflucan for possible yeast infection from the antibiotic. She had one day of diarrhea once she started the antibiotic but that has resolved. Patient's symptoms are overall improving. She was able to tolerate a normal diet over the last two days - ate oatmeal with prunes and banana for breakfast and chicken and vegetables for dinner. Her bowel movements have been fairly normal over the last two days. Today she dominguez some right sided back pain. Also complaining of feeling "strange" and "fuzzy", mild headache. She denies seizure, imbalance or confusion. No report of fever, chills, cough, SOB, chest pain. No additional complaints at this time. In the ER she is afebrile, HD stable, NAD Discharge Exam General-alert and oriented x3, no fever, no chills HEENT-head atraumatic and normocephalic, pupils equal and reactive to light, extraocular muscles intact Neck-no lymphadenopathy or thyromegaly, trachea midline Chest-clear to auscultation. No rales, wheezing or rhonchi Cardiac-regular rate and rhythm, normal S1 and S2 Abdomen-normal bowel sounds, no hepatosplenomegaly Extremities-no cyanosis, clubbing, or edema Neuro-cranial nerves II through XII intact, motor and sensory function within normal limits, strength symmetrical with generalized weakness consistent with age, no focal deficits Psych-anxious affect. Updated Medication List Medication Instructions Recorded Confirmed Type ascorbic acid (vitamin C) 60 mg 60 mg PO QAM 10/10/21 03/31/24 History lozenges cyanocobalamin (vitamin B-12) 500 500 mcg PO QAM 10/10/21 03/31/24 History mcg tablet (Vitamin B-12) vit C 250 mg-vit E 90 mg-zinc 40 1 tab PO QAM 10/10/21 03/31/24 History mg-copper 1 [id number]-[id number]-[id number] capsule (PreserVision AREDS-2) hydrocortisone 2.5 % topical 1 applic topical BID PRN skin 04/18/23 03/31/24 Rx ointment irritation #28.35 grams losartan 50 mg tablet 25 mg (1/2 x 50 mg) PO QID #180 08/03/23 03/31/24 Rx tabs chlorthalidone 25 mg tablet 25 mg PO DAILY hypertension #90 12/13/23 03/31/24 Rx tabs famotidine 20 mg tablet (Pepcid) 20 mg PO QAM #90 tabs 01/12/24 03/31/24 Rx clindamycin phosphate 1 % topical 1 applic topical DAILY PRN .flare 03/31/24 History gel ups clobetasol 0.05 % topical ointment 1 applic topical BID PRN flare ups 03/31/24 03/31/24 History hydralazine 10 mg tablet 10 mg PO TID 03/31/24 03/31/24 History hydralazine 25 mg tablet 25 mg PO BID #60 tabs 04/01/24 Rx lorazepam 0.5 mg tablet 0.5 mg PO Q8H PRN anxiety #30 tabs 04/01/24 Rx Hospital Stay Data Consultations 03/30/24 23:37 ED Decision to Admit Stat Diagnostic Imagining Performed 03/30/24 21:30 CT abd pelvis IV con only Stat Pending Results Patient Have Any Pending Studies at Discharge: No Discharge Instructions Given to Patient (Per Discharging Provider) Chlorthalidone and losartan have been stopped. Hydralazine dosage is now 25 mg twice a day. New prescription has been sent to [facility] pharmacy Total Time Total Time Spent Total Time Spent (In Minutes): 45 minutes Coding Level of Care Code 03525 INP/OBS DISCH >30 MIN Diagnoses Acute hyponatremia E87.1 Hypertension I10 Hypertension type: unspecified Diverticulitis K57.92 Lyndsey vaginitis B37.31 Anxiety state F41.1
[2024-04-01] MEDS ORDERED: hydrALAZINE HCL 25 MG TAB PO SCH (21:00)
== END 2024-04-01 16:02 | disposition home or self-care (01) | DRG 645 ==
LOC: ED 20:45 → 2N 23:41 → SUATTDRO 23:41 → 2N 03-31 01:39

== ENCOUNTER 2024-05-01 14:07 | Observation (INO) ==
[2024-05-01] MEDS: hydrALAZINE HCL 20 MG/ML VIAL IV STA ×2 (14:57→15:33)
[2024-05-01 15:05] LABS: Basophils # (auto) 0.05 K/uL (0.00-0.20); Basophils % (auto) 0.8 %; Eosinophils # (auto) 0.15 K/uL (0.00-0.50); Eosinophils % (auto) 2.3 %; Hematocrit (blood only) 31.3 % (37.0-47.0); Hemoglobin 10.4 g/dl (12.0-16.0); Immature Granulocytes # (auto) 0.03 K/uL (0.01-0.20); Immature Granulocytes % (auto) 0.5 %; Lymphocytes # (auto) 1.67 K/uL (1.20-3.40); Lymphocytes % (auto) 25.1 %; Mean Corpuscular Hemoglobin 30.1 pg (25.0-34.0); Mean Corpuscular Hgb Conc 33.2 g/dL (32.0-36.0); Mean Corpuscular Volume 90.7 fL (80.0-100.0); Monocytes # (auto) 0.52 K/uL (0.11-0.59); Monocytes % (auto) 7.8 %; Neutrophils # (auto) 4.24 K/uL (1.40-6.50); Neutrophils % (auto) 63.5 %; Platelet Count 269 K/uL (130-400); RDW Coefficient of Variation 13.2 % (11.5-14.5); RDW Standard Deviation 43.8 fL (36.4-46.3); Red Blood Count 3.45 M/uL (4.20-5.40); White Blood Count 6.66 K/ul (4.8-10.8)
[2024-05-01 15:22] LABS: Albumin Globulin Ratio 1.2 (0.9-2); Albumin Level 3.8 gm/dl (3.4-5.0); BUN Creatinine Ratio 14.9 (10-20); Bilirubin,Total 0.6 mg/dl (0.2-1.0); Calcium 8.9 mg/dl (8.6-10.3); Creatinine Clr Calc Pharmacy 35.7 ml/min; Est GFR (African American) 62.8 ml/min; Est GFR (Non-African American) 54.2 ml/min; Globulin 3.1 gm/dl (2.5-4.0); Potassium 3.8 mmol/L (3.5-5.1); Total Protein 6.9 gm/dl (6.0-8.3)
--- NOTE | 2024-05-01 15:24 | CT Scan Report ---
CT head/brain wo con CLINICAL HISTORY: hypertension; headache Technique: Contiguous axial CT images of the head were acquired from the base of the skull to the stanton lizzeth without intravenous contrast administration. Images were viewed in brain[facility] subd[facility]. Automated dose lowering techniques and/or adjustment according to patient size were utilized for this exam. Comparison: Comparison is made to CT head 04/14/2024 Findings: The ventricles, basal cisterns, and cerebral sulci are normal. There is no acute intracranial hemorrh age or evidence of acute territorial infarction. Neither mass effect, shift of the midline structures , nor abnormal extra-axial fluid collections are shown. Imaged portions of the paranasal sinuses and mastoid air cells are clear. The orbits appear normal. There are no acute fractures of the calvaria or scalp swelling. Impression: No acute intracranial hemorrhage, no evidence of acute territorial infarction or other acute intracra nial disease process. ACT 112: Negative or not required by law. Electronically signed by: Shawn Tolbert M.D. 05/01/2024 3:23 PM
[2024-05-01 15:27] LABS: Troponin I High Sensitivity 13.5 pg/ml (0-14)
--- NOTE | 2024-05-01 15:27 | Emergency Department Note ---
Impression & Plan Hypertensive urgency, Headache, Pulmonary edema, Elevated brain natriuretic peptide (BNP) level ED Provider Note HISTORY OF PRESENT ILLNESS: Patient is an 88-year-old female presenting with hypertension and headache. Patient reports for the last few days she has been taking her blood pressure at home and has been significantly more elevated than normal. Reports her baseline is normally around 160-170. States that in the last 3 to 4 days her pressures been up to 215 systolic. She takes a total of 50 mg of hydralazine throughout the day (states she takes it 4 times a day for a total of 50 mg) and a total of 25 mg losartan (distributed over 2 doses). States that despite these medications, her pressures have been significantly elevated. She is also started to have a headache over the last 48 hours. Reports that when her blood pressure gets over 200 she gets significant left-sided headache and pain down her left neck. Denies any changes in vision, numbness or tingling or weakness in her extremities. She denies any recent changes to medications. Denies recent falls or head injuries or chiropractic manipulation of her neck. She had a persistently elevated blood pressure today and a headache, prompting her to come back to the emergency department. Patient reports she also took a dose of her 0.5 mg Ativan prehospital with minimal relief in her blood pressure. ROS: as above PHYSICAL EXAM: Constitutional: Patient appears in no acute distress. HENT: Head: Normocephalic and atraumatic. Eyes: EOMI, PERRL Mouth/Throat: Mucous membranes moist. Neck: Trachea midline. Neck supple. Cardiovascular: RRR, No murmurs, rubs or gallops. Intact distal pulses. Pulmonary/Chest: No respiratory distress. Breath sounds clear and equal bilaterally. No wheezes or rales. Abdominal: Abdomen soft, no tenderness, rebound or guarding. Musculoskeletal: No edema, tenderness or deformity noted. Skin: Warm and dry. No rash, erythema, pallor or cyanosis Psychiatric: Appropriate mood and affect for situation. Neurological: Alert and keenly responsive. CN II-XII grossly intact, moving all extremities equally and fully. MDM: - Vitals signs showed hypertension. - History obtained via patient. History as above. - Chronic conditions affecting care: HTN; HLD; fibromyalgia - Differential diagnoses include, but are not limited to: ACS; pneumonia; CHF exacerbation; FARRUKH; electrolyte abnormality - Order placed for continuous cardiac monitoring. At this time, monitor showed rate of 80 bpm with normal sinus rhythm, per my interpretation. - External medical records reviewed. Primary care visit note dated 04/04/2024 was reviewed. Patient was seen for a hospital discharge follow-up. - EKG interpreted by myself showed normal sinus rhythm. Rate 77 bpm. QT 364. No acute ischemic changes. - Laboratory workup interpreted by myself showed normal WBC; anemia (Hgb 10.4); normal PT/INR; stable electrolytes; normal troponin; elevated BNP (442); normal lipase - CXR showed evidence of pulmonary edema, per my interpretation. - Patient initially given 10 mg IV hydralazine with some improvement in her blood pressure. She was given additional 10 mg of IV hydralazine with improvement in her blood pressures to 160s systolic. - CT head wo contrast negative for acute intracranial pathology - Patient given 20 mg IV lasix for her pulmonary edema. - Given patient's elevated BNP and pulmonary edema on chest x-ray in the setting of hypertension, do feel she would benefit from inpatient workup, such as an echocardiogram, and further medical management of her hypertension. - Discussion was had with egg caser about patient's case and need for admission - Hospitalist consulted for admission - [facility] ASSESSMENT AND PLAN: Diagnosis: Hypertensive urgency; pulmonary edema; elevated BNP; headache Plan: Admit Past Med/Surg History Problem List (Updated 05/01/24 @ 17:23 by Avelina Talavera MD) Elevated brain natriuretic peptide (BNP) level (Acute) Pulmonary edema (Acute) Headache (Acute) Hypertensive urgency (Acute) Anxiety state Lyndsey vaginitis Left low back pain (Acute) Acute hyponatremia (Acute) Post-nasal drip Macular degeneration of right eye Cervical polyp Atrophic vaginitis Vaginal burning Rosacea (Chronic) High cholesterol (Chronic) GERD (gastroesophageal reflux disease) (Chronic) Anxiety (Chronic) Fibromyalgia (Chronic) Depression (Chronic) Cervical spondylosis (Chronic) Cervical radiculitis (Chronic) Myofascial pain Vitamin D deficiency (Acute) Osteoporosis (Acute) Multiple pulmonary nodules (Acute) Lichen sclerosus et atrophicus (Acute) Insomnia (Acute) Chronic osteoarthritis (Acute) Carpal tunnel syndrome (Acute) Carotid atherosclerosis (Acute) Left knee pain Prediabetes Partial thickness burn of toe (Acute) Medical History Postmenopausal atrophic vaginitis Mitral valve prolapse History of mitral valve prolapse History of Lyme disease History of irritable bowel syndrome History of diverticulitis Amaurosis fugax History of diverticulosis Bilateral cataracts HTN (hypertension), benign Hypertensive urgency Pneumonia Surgical History H/O oral surgery H/O tubal ligation S/P cataract surgery S/P cardiac cath (~2001) normal coronary arteries Family History Mother Stomach cancer Son Bipolar disorder Hyperlipidemia Hypertension Suicide Brother Parkinson disease Father Myocardial infarction Denies family history of Ovarian cancer Prostate cancer Breast cancer Colorectal cancer Social History Smoking Status: Never smoker Second Hand Exposure: No; Do You Dip or Chew Tobacco: No; Hx Alcohol Use: No Hx Substance Use: No Preferred Language: [place] Communication Ability: Effective Visual Impairment: No Limitations Hearing Ability: Normal Manager Emergency Required: No Beliefs That Will Affect Care: None marital status: Current Living Situation: Family Current Living Situation Comment: grandson lives with her current occupational status: retired Feels Safe at Home: Yes Childhood Exposure to Second-Hand Smoke: No Diet: regular caffeine: No during the past year weight has: remained stable Dental Care, Regularly: Yes Physical Activity Frequency: Daily Seatbelt Use: always Sunscreen Use: Yes Assistive Devices: None Allergies Allergies Allergy/AdvReac Type Severity Reaction Status Date / Time amlodipine Allergy Severe CHEST Verified 04/04/24 13:07 HEAVINESS, BACK PAIN lisinopril Allergy Severe CHEST Verified 04/04/24 13:07 HEAVINESS, BACK PAIN telmisartan Allergy Severe CHEST Verified 04/04/24 13:07 HEAVINESS, BACK PAIN shark liver oil Allergy Intermediate HIVES Verified 04/04/24 13:07 Sulfa (Sulfonamide Allergy Intermediate rash Verified 04/04/24 13:07 Antibiotics) acetaminophen Allergy Unknown UNKNOWN Verified 04/04/24 13:07 cephalexin [From Keflex] Allergy Unknown Unknown Verified 04/04/24 13:07 ciprofloxacin [From Cipro] Allergy Unknown Unknown Verified 04/04/24 13:07 clarithromycin Allergy Unknown RASH, Verified 04/04/24 13:07 COTTON MOUTH doxycycline Allergy Unknown UNK Verified 04/04/24 13:07 erythromycin base Allergy Unknown Unknown Verified 04/04/24 13:07 fexofenadine [From Krystin] Allergy Unknown Unknown Verified 04/04/24 13:07 gabapentin [From Neurontin] Allergy Unknown Unknown Verified 04/04/24 13:07 ibuprofen [From Advil] Allergy Unknown Unknown Verified 04/04/24 13:07 labetalol Allergy Unknown Unknown Verified 04/04/24 13:07 liver extract Allergy Unknown Unknown Verified 04/04/24 13:07 metoprolol [From Toprol XL] Allergy Unknown Unknown Verified 04/04/24 13:07 nortriptyline [From Pamelor] Allergy Unknown Unknown Verified 04/04/24 13:07 Penicillins Allergy Unknown UNKNOWN Verified 04/04/24 13:07 propranolol Allergy Unknown Unknown Verified 04/04/24 13:07 rabeprazole [From AcipHex] Allergy Unknown Unknown Verified 04/04/24 13:07 spironolactone Allergy Unknown Unknown Verified 04/04/24 13:07 sulfacetamide Allergy Unknown Unknown Verified 04/04/24 13:07 [From Sulfamide] tramadol Allergy Unknown Unknown Verified 04/04/24 13:07 Adbcpjc-NTS-KwH Reductase AdvReac Intermediate jittery Verified 04/04/24 13:07 Inhibitor [Vvazlti-Gse-Nac Reductase Inhibitor] bisoprolol AdvReac Unknown Verified 04/04/24 13:07 Liver Allergy Intermediate HIVES Uncoded 04/04/24 13:07 Phenylmercuric Nitrate Allergy Intermediate HIVES Uncoded 04/04/24 13:07 "Almost all antibiotics" AdvReac Unknown Unknown Uncoded 04/04/24 13:07 Home Meds Home Medications Medication Instructions Recorded Confirmed ascorbic acid (vitamin C) 60 mg 60 mg PO QAM 10/10/21 04/04/24 lozenges cyanocobalamin (vitamin B-12) 500 500 mcg PO QAM 10/10/21 04/04/24 mcg tablet (Vitamin B-12) vit C 250 mg-vit E 90 mg-zinc 40 1 tab PO QAM 10/10/21 04/04/24 mg-copper 1 [id number] capsule (PreserVision AREDS-2) clindamycin phosphate 1 % topical 1 applic topical DAILY PRN .flare 03/31/24 04/04/24 gel ups clobetasol 0.05 % topical ointment 1 applic topical BID PRN flare ups 03/31/24 04/04/24 Previous Rx's Medication Instructions Recorded hydrocortisone 2.5 % topical 1 applic topical BID PRN skin 04/18/23 ointment irritation #28.35 grams famotidine 20 mg tablet (Pepcid) 20 mg PO QAM #90 tabs 01/12/24 hydralazine 25 mg tablet 25 mg PO BID #60 tabs 04/01/24 lorazepam 0.5 mg tablet 0.5 mg PO DAILY PRN anxiety #30 04/04/24 tabs losartan 25 mg tablet 25 mg PO BID 90 days #180 tabs 04/04/24 Results & Data (ED) Vital Signs Vital Signs - 24 hr 05/01/24 14:10 05/01/24 14:38 05/01/24 14:42 Temperature 36.6 C Temperature Source Temporal Artery Scan Pulse Rate 84 68 Pulse Rate from SpO2 Sensor Respiratory Rate 18 Respiratory Effort / Characteristics Non-Labored Spontaneous Accessory Muscle Use Blood Pressure 215/104 H Blood Pressure Mean 141 Blood Pressure Position Sitting Pulse Oximetry 97 96 Oxygen Delivery Method Room Air Room Air Sepsis Recent Fever Within 48 Hours No Sepsis New/Unexplained Change in Mental Status N/A Sepsis Action Taken by Nursing No Action Required 05/01/24 14:47 05/01/24 14:59 05/01/24 15:06 Temperature Temperature Source Pulse Rate 75 Pulse Rate from SpO2 Sensor 75 Respiratory Rate 21 Respiratory Effort / Characteristics Blood Pressure 187/96 H 194/85 H Blood Pressure Mean 137 112 Blood Pressure Position Pulse Oximetry 99 Oxygen Delivery Method Sepsis Recent Fever Within 48 Hours Sepsis New/Unexplained Change in Mental Status Sepsis Action Taken by Nursing 05/01/24 15:27 05/01/24 15:27 05/01/24 15:27 Temperature Temperature Source Pulse Rate 75 Pulse Rate from SpO2 Sensor 76 Respiratory Rate 19 Respiratory Effort / Characteristics Blood Pressure 187/89 H 187/89 H Blood Pressure Mean 138 138 Blood Pressure Position Pulse Oximetry 98 Oxygen Delivery Method Sepsis Recent Fever Within 48 Hours Sepsis New/Unexplained Change in Mental Status Sepsis Action Taken by Nursing 05/01/24 15:30 05/01/24 15:33 05/01/24 15:42 Temperature Temperature Source Pulse Rate 72 92 H Pulse Rate from SpO2 Sensor 73 77 Respiratory Rate 18 18 Respiratory Effort / Characteristics Blood Pressure 180/83 H Blood Pressure Mean 133 Blood Pressure Position Pulse Oximetry 99 99 Oxygen Delivery Method Sepsis Recent Fever Within 48 Hours Sepsis New/Unexplained Change in Mental Status Sepsis Action Taken by Nursing 05/01/24 15:45 05/01/24 15:45 05/01/24 15:54 Temperature Temperature Source Pulse Rate 77 73 Pulse Rate from SpO2 Sensor 79 74 Respiratory Rate 20 19 Respiratory Effort / Characteristics Blood Pressure 176/90 H Blood Pressure Mean 119 Blood Pressure Position Pulse Oximetry 99 99 Oxygen Delivery Method Sepsis Recent Fever Within 48 Hours Sepsis New/Unexplained Change in Mental Status Sepsis Action Taken by Nursing 05/01/24 15:57 05/01/24 16:00 05/01/24 16:06 Temperature Temperature Source Pulse Rate 75 75 Pulse Rate from SpO2 Sensor 75 76 Respiratory Rate 21 14 Respiratory Effort / Characteristics Blood Pressure 156/78 H Blood Pressure Mean 97 Blood Pressure Position Pulse Oximetry 99 99 Oxygen Delivery Method Sepsis Recent Fever Within 48 Hours Sepsis New/Unexplained Change in Mental Status Sepsis Action Taken by Nursing 05/01/24 16:12 05/01/24 16:15 05/01/24 16:15 Temperature Temperature Source Pulse Rate 75 77 Pulse Rate from SpO2 Sensor 75 77 Respiratory Rate 22 20 Respiratory Effort / Characteristics Blood Pressure 152/75 H Blood Pressure Mean 114 Blood Pressure Position Pulse Oximetry 98 99 Oxygen Delivery Method Sepsis Recent Fever Within 48 Hours Sepsis New/Unexplained Change in Mental Status Sepsis Action Taken by Nursing 05/01/24 16:24 05/01/24 16:30 05/01/24 16:30 Temperature Temperature Source Pulse Rate 76 75 Pulse Rate from SpO2 Sensor 76 75 Respiratory Rate 20 18 Respiratory Effort / Characteristics Blood Pressure 154/66 H Blood Pressure Mean 77 Blood Pressure Position Pulse Oximetry 99 99 Oxygen Delivery Method Sepsis Recent Fever Within 48 Hours Sepsis New/Unexplained Change in Mental Status Sepsis Action Taken by Nursing 05/01/24 16:51 05/01/24 16:54 05/01/24 17:00 Temperature Temperature Source Pulse Rate 83 80 Pulse Rate from SpO2 Sensor 82 80 Respiratory Rate 24 22 Respiratory Effort / Characteristics Blood Pressure 167/104 H Blood Pressure Mean 128 Blood Pressure Position Pulse Oximetry 99 98 Oxygen Delivery Method Sepsis Recent Fever Within 48 Hours Sepsis New/Unexplained Change in Mental Status Sepsis Action Taken by Nursing Laboratory Data 05/01/24 14:45 05/01/24 14:45 Lab Results 05/01/24 Range/Units 14:45 WBC 6.66 (4.8-10.8) K/ul RBC 3.45 L (4.20-5.40) M/uL Hgb 10.4 L (12.0-16.0) g/dl Hct 31.3 L (37.0-47.0) % MCV 90.7 (80.0-100.0) fL MCH 30.1 (25.0-34.0) pg MCHC 33.2 (32.0-36.0) g/dL RDW Std Deviation 43.8 (36.4-46.3) fL RDW Coeff of Eran 13.2 (11.5-14.5) % Plt Count 269 (130-400) K/uL MPV 11.0 (9.4-12.4) fL Immature Gran % (Auto) 0.5 % Neut % (Auto) 63.5 % Lymph % (Auto) 25.1 % [place] % (Auto) 7.8 % Eos % (Auto) 2.3 % Baso % (Auto) 0.8 % Neut # (Auto) 4.24 (1.40-6.50) K/uL Lymph # (Auto) 1.67 (1.20-3.40) K/uL [place] # (Auto) 0.52 (0.11-0.59) K/uL Eos # (Auto) 0.15 (0.00-0.50) K/uL Baso # (Auto) 0.05 (0.00-0.20) K/uL Immature Gran # (Auto) 0.03 (0.01-0.20) K/uL PT 10.5 (9.0-12.0) Seconds INR 1.0 (0.9-1.1) Sodium 143 (136-145) mmol/L Potassium 3.8 (3.5-5.1) mmol/L Chloride 111 H (98-107) mmol/L Carbon Dioxide 24 (21-32) mmol/L Anion Gap 8 (3-11) BUN 14 (6-23) mg/dl Creatinine 0.94 (0.6-1.2) mg/dl Est Cr Clr Drug Dosing 35.7 ml/min Est GFR ( Amer) 62.8 ml/min Est GFR (Non-Af Amer) 54.2 ml/min BUN/Creatinine Ratio 14.9 (10-20) Glucose 97 (70-99(Fasting)) mg/dl Calcium 8.9 (8.6-10.3) mg/dl Total Bilirubin 0.6 (0.2-1.0) mg/dl AST 30 (13-39) U/L ALT 29 (7-52) U/L Alkaline Phosphatase 153 H (34-104) U/L Troponin I High Sens 13.5 (0-14) pg/ml B-Natriuretic Peptide 442 H (0-100) pg/ml Total Protein 6.9 (6.0-8.3) gm/dl Albumin 3.8 (3.4-5.0) gm/dl Globulin 3.1 (2.5-4.0) gm/dl Albumin/Globulin Ratio 1.2 (0.9-2) Lipase 24 (11-82) U/L Administered Medications Discontinued Medications Furosemide (Furosemide Inj 20 Mg/2 Ml Vial) 20 mg IV ONE ONE Stop: 05/01/24 16:41 Last Admin: 05/01/24 17:11 Dose: 20 mg Documented By: ÁNGELA Hydralazine HCl (Hydralazine Hcl 20 Mg/Ml Vial) 10 mg IV NOW STA Stop: 05/01/24 14:29 Last Admin: 05/01/24 14:57 Dose: 10 mg Documented By: ÁNGELA Hydralazine HCl (Hydralazine Hcl 20 Mg/Ml Vial) 10 mg IV NOW STA Stop: 05/01/24 15:27 Last Admin: 05/01/24 15:33 Dose: 10 mg Documented By: DS Imaging Data Radiologist's Impression: Chest X-Ray 05/01/24 14:28 XR chest 1V portable CLINICAL HISTORY: hypertension TECHNIQUE: Single frontal radiograph of the chest was obtained. Comparison: Comparison is made to chest radiograph 10/10/2021 FINDINGS: No lines and tubes are seen. Cardiomegaly is noted. Prominence and cephalization of the vasculature is seen. No evidence of pleural effusion or pneumothorax. IMPRESSION: Cardiomegaly and mild pulmonary edema. ACT 112: Negative or not required by law. Electronically signed by: Shawn Tolbert M.D. 05/01/2024 4:[address] 05/01/24 14:28 CT head/brain wo con CLINICAL HISTORY: hypertension; headache Technique: Contiguous axial CT images of the head were acquired from the base of the skull to the vertex without intravenous contrast administration. Images were viewed in brain, subdural and bone windows. Automated dose lowering techniques and/or adjustment according to patient size were utilized for this exam. Comparison: Comparison is made to CT head 04/14/2024 Findings: The ventricles, basal cisterns, and cerebral sulci are normal. There is no acute intracranial hemorrhage or evidence of acute territorial infarction. Neither mass effect, shift of the midline structures, nor abnormal extra-axial fluid collections are shown. Imaged portions of the paranasal sinuses and mastoid air cells are clear. The orbits appear normal. There are no acute fractures of the calvaria or scalp swelling. Impression: No acute intracranial hemorrhage, no evidence of acute territorial infarction or other acute intracranial disease process. ACT 112: Negative or not required by law. Electronically signed by: Shawn Tolbert M.D. 05/01/2024 3:23 PM Discharge Plan Visit Data Chief Complaint: Hypertension Stated Complaint: HYPERTENSION ED Provider: Avelina Talavera Discharge Problem: Hypertensive urgency, Headache, Pulmonary edema, Elevated brain natriuretic peptide (BNP) level Forms Stand Alone Forms: My [facility] [employer] [place] Prescriptions Prescriptions: No Action famotidine [Pepcid] 20 mg tablet 20 mg PO QAM Qty: 90 3RF hydrocortisone 2.5 % ointment 1 applic topical BID PRN (Reason: skin irritation) Qty: 28.35 1RF losartan 25 mg tablet 25 mg PO BID 90 Days Qty: 180 3RF lorazepam 0.5 mg tablet 0.5 mg PO DAILY PRN (Reason: anxiety) Qty: 30 0RF ascorbic acid (vitamin C) 60 mg Lozenge 60 mg PO QAM cyanocobalamin (vitamin B-12) [Vitamin B-12] 500 mcg Tablet 500 mcg PO QAM PreserVision AREDS-2 250-90-40-1 mg Capsule 1 tab PO QAM clindamycin phosphate 1 % gel 1 applic topical DAILY PRN (Reason: .flare ups) clobetasol 0.05 % ointment 1 applic topical BID PRN (Reason: flare ups) hydralazine 25 mg Tablet 25 mg PO BID Qty: 60 0RF Referrals Referrals: Jose Armando Marroquin, [Primary Care Provider] -
[2024-05-01 15:39] LABS: Prothrombin Time 10.5 Seconds (9.0-12.0)
--- NOTE | 2024-05-01 16:04 | XRay Report ---
XR chest 1V portable CLINICAL HISTORY: hypertension TECHNIQUE: Single frontal radiograph of the chest was obtained. Comparison: Comparison is made to chest radiograph 10/10/2021 FINDINGS: No lines and tubes are seen. Cardiomegaly is noted. Prominence and cephalization of the vasculature i s seen. No evidence of pleural effusion or pneumothorax. IMPRESSION: Cardiomegaly and mild pulmonary edema. ACT 112: Negative or not required by law. Electronically signed by: Shawn Tolbert M.D. 05/01/2024 4:02 PM
[2024-05-01] MEDS: FUROSEMIDE INJ 20 MG/2 ML VIAL IV ONE (17:11)
--- NOTE | 2024-05-01 17:33 | History & Physical Report ---
Date of Service May 01, 2024 Assessment & Plan (1) Hypertensive emergency: Plan: - ongoing elevated blood pressure at home for multiple days with headache - EKG on admission NSR - BNP on admission 442, CXR showed pulmonary edema - Head CT negative - troponin WNL - No evidence of FARRUKH on admission, Cr 0.94 - Patient's chlorthalidone was discontinued in March due to hyponatremia, sodium WNL previously to past admission, in recent labs (04/14), and today - Blood pressure decreased with IV hydralazine, Lasix, and losartan - due to stable sodium and extensive allergy, chlorthalidone restarted - continue home BP medications - Hydralazine 10 mg IV PRN sBP > 185, dBP > 95 - Echo ordered (2) GERD (gastroesophageal reflux disease): Plan: - continue home Pepcid (3) Anxiety state: Plan: - continue home lorazepam as needed Plan VTE ppx: SCDs Diet: regular Code status: FULL CODE History of Present Illness Chief Complaint: hypertension Primary Care Provider: Jose Armando Marroquin DO Patient is an 88 year old female with a past medical history of GERD, anxiety, macular degeneration, and diverticulitis. She presented today due to ongoing elevated blood pressure and a headaches. She stated that the past few days her blood pressure has been elevated. She stated that the systolic blood pressure has been in the 200s and the lowest it has gotten was 183/98. Last night she said that her blood pressure would not go down and she had an ongoing headache with neck pain that kept her up throughout the night. She has left eye pain with the headache along with dizziness and lightheadedness. She denies chest pain, shortness of breath, numbness, and tingling. She has been taking her hydralazine 4 times a day, 15mg for the morning and evening dose, and 10 mg at noon and 1500. She also takes losartan 25 mg 4 times daily. During admission in March 2024, chlorthalidone was discontinued due to hyponatremia. Patient denies lower extremity edema since discontinuing. She stated that she took this due to ongoing wheezing for 3 years, she denies history of CHF and chronic edema. She denies a history of COPD, asthma, arrhythmia, cancer. She does not smoke tobacco or use alcohol. She denies sore throat, cough, chest pain, shortness of breath, dysuria, hematuria, abdominal pain, nausea, diarrhea, constipation, lightheadedness, dizziness, numbness, tingling, and edema. She wishes to be full code and her POA is her daughter. She has a living will. Allergies Allergy/AdvReac Type Severity Reaction Status Date / Time amlodipine Allergy Severe CHEST Verified 05/01/24 17:36 HEAVINESS, BACK PAIN lisinopril Allergy Severe CHEST Verified 05/01/24 17:36 HEAVINESS, BACK PAIN telmisartan Allergy Severe CHEST Verified 05/01/24 17:36 HEAVINESS, BACK PAIN shark liver oil Allergy Intermediate HIVES Verified 05/01/24 17:36 Sulfa (Sulfonamide Allergy Intermediate rash Verified 05/01/24 17:36 Antibiotics) acetaminophen Allergy Unknown UNKNOWN Verified 05/01/24 17:36 cephalexin [From Keflex] Allergy Unknown Unknown Verified 05/01/24 17:36 ciprofloxacin [From Cipro] Allergy Unknown Unknown Verified 05/01/24 17:36 clarithromycin Allergy Unknown RASH, Verified 05/01/24 17:36 COTTON MOUTH doxycycline Allergy Unknown UNK Verified 05/01/24 17:36 erythromycin base Allergy Unknown Unknown Verified 05/01/24 17:36 fexofenadine [From Krystin] Allergy Unknown Unknown Verified 05/01/24 17:36 gabapentin [From Neurontin] Allergy Unknown Unknown Verified 05/01/24 17:36 ibuprofen [From Advil] Allergy Unknown Unknown Verified 05/01/24 17:36 labetalol Allergy Unknown Unknown Verified 05/01/24 17:36 liver extract Allergy Unknown Unknown Verified 05/01/24 17:36 metoprolol [From Toprol XL] Allergy Unknown Unknown Verified 05/01/24 17:36 nortriptyline [From Pamelor] Allergy Unknown Unknown Verified 05/01/24 17:36 Penicillins Allergy Unknown UNKNOWN Verified 05/01/24 17:36 propranolol Allergy Unknown Unknown Verified 05/01/24 17:36 rabeprazole [From AcipHex] Allergy Unknown Unknown Verified 05/01/24 17:36 spironolactone Allergy Unknown Unknown Verified 05/01/24 17:36 sulfacetamide Allergy Unknown Unknown Verified 05/01/24 17:36 [From Sulfamide] tramadol Allergy Unknown Unknown Verified 05/01/24 17:36 Qfmdorr-MGR-UbG Reductase AdvReac Intermediate jittery Verified 05/01/24 17:36 Inhibitor [Iyxkzml-Lhn-Cno Reductase Inhibitor] bisoprolol AdvReac Unknown Verified 05/01/24 17:36 Liver Allergy Intermediate HIVES Uncoded 05/01/24 17:36 Phenylmercuric Nitrate Allergy Intermediate HIVES Uncoded 05/01/24 17:36 "Almost all antibiotics" AdvReac Unknown Unknown Uncoded 05/01/24 17:36 Home Medications Medication Instructions Recorded Confirmed Type ascorbic acid (vitamin C) 60 mg 60 mg PO QAM 10/10/21 05/01/24 History lozenges vit C 250 mg-vit E 90 mg-zinc 40 1 tab PO QAM 10/10/21 05/01/24 History mg-copper 1 ak-bnlgma-gsclqk capsule (PreserVision AREDS-2) hydrocortisone 2.5 % topical 1 applic topical BID PRN skin 04/18/23 05/01/24 Rx ointment irritation #28.35 grams famotidine 20 mg tablet (Pepcid) 20 mg PO QAM #90 tabs 01/12/24 05/01/24 Rx clindamycin phosphate 1 % topical 1 applic topical DAILY PRN .flare 03/31/24 05/01/24 History gel ups clobetasol 0.05 % topical ointment 1 applic topical BID PRN flare ups 03/31/24 05/01/24 History lorazepam 0.5 mg tablet 0.5 mg PO DAILY PRN anxiety #30 04/04/24 05/01/24 Rx tabs hydralazine 10 mg tablet See Rx Instructions .Route .COMPLEX 05/01/24 05/01/24 History losartan 25 mg tablet 25 mg PO QID 05/01/24 05/01/24 History Past Med/Surg History Problem List Hypertensive emergency Elevated brain natriuretic peptide (BNP) level (Acute) Pulmonary edema (Acute) Headache (Acute) Hypertensive urgency (Acute) Anxiety state Lyndsey vaginitis Left low back pain (Acute) Acute hyponatremia (Acute) Post-nasal drip Macular degeneration of right eye Cervical polyp Atrophic vaginitis Vaginal burning Rosacea (Chronic) High cholesterol (Chronic) GERD (gastroesophageal reflux disease) (Chronic) Anxiety (Chronic) Fibromyalgia (Chronic) Depression (Chronic) Cervical spondylosis (Chronic) Cervical radiculitis (Chronic) Myofascial pain Vitamin D deficiency (Acute) Osteoporosis (Acute) Multiple pulmonary nodules (Acute) Lichen sclerosus et atrophicus (Acute) Insomnia (Acute) Chronic osteoarthritis (Acute) Carpal tunnel syndrome (Acute) Carotid atherosclerosis (Acute) Left knee pain Prediabetes Partial thickness burn of toe (Acute) Medical History Diverticulitis Hypertension Postmenopausal atrophic vaginitis Mitral valve prolapse History of mitral valve prolapse History of Lyme disease History of irritable bowel syndrome History of diverticulitis Amaurosis fugax History of diverticulosis Bilateral cataracts HTN (hypertension), benign Hypertensive urgency Pneumonia Surgical History H/O oral surgery H/O tubal ligation S/P cataract surgery S/P cardiac cath (~2001) normal coronary arteries Family History Mother Stomach cancer Son Bipolar disorder Hyperlipidemia Hypertension Suicide Brother Parkinson disease Father Myocardial infarction Denies family history of Ovarian cancer Prostate cancer Breast cancer Colorectal cancer Social History Smoking Status: Never smoker Second Hand Exposure: No; Do You Dip or Chew Tobacco: No; Hx Alcohol Use: No Hx Substance Use: No Preferred Language: Ghanaian Communication Ability: Effective Visual Impairment: No Limitations Hearing Ability: Normal Endorsement Clerk Required: No Beliefs That Will Affect Care: None marital status: Current Living Situation: Family Current Living Situation Comment: grandson lives with her current occupational status: retired Feels Safe at Home: Yes Childhood Exposure to Second-Hand Smoke: No Diet: regular caffeine: No during the past year weight has: remained stable Dental Care, Regularly: Yes Physical Activity Frequency: Daily Seatbelt Use: always Sunscreen Use: Yes Assistive Devices: None Review of Systems Review of Systems: See hpi Physical Exam Physical Exam: The patient is awake, alert and oriented 3, well developed and well nourished, normocephalic and atraumatic, in no acute distress. Non-toxic appearing. HEENT- EOMI, mucous membranes moist. Hearing grossly intact. Heart-normal S1 and S2. No murmurs, rubs or gallops. Lungs-clear bilaterally, no respiratory distress, no accessory muscle use. Abdomen-normal bowel sounds and soft. No ascites noted. Non-tender. Extremities- no clubbing, cyanosis, or edema. Rheumatologic-normal range of motion. Psychiatric-normal affect. Results & Data Results & Data Vital Signs (Past 12 Hours) Vital Signs Temp Pulse Resp BP Pulse Ox O2 Del Method 05/01/24 17:00 167/104 H 05/01/24 16:54 80 22 98 05/01/24 16:51 83 24 99 05/01/24 16:30 75 18 99 05/01/24 16:30 154/66 H 05/01/24 16:24 76 20 99 05/01/24 16:15 152/75 H 05/01/24 16:15 77 20 99 05/01/24 16:12 75 22 98 05/01/24 16:06 75 14 99 05/01/24 16:00 156/78 H 05/01/24 15:57 75 21 99 05/01/24 15:54 73 19 99 05/01/24 15:45 176/90 H 05/01/24 15:45 77 20 99 05/01/24 15:42 92 H 18 99 05/01/24 15:33 72 18 99 05/01/24 15:30 180/83 H 05/01/24 15:27 187/89 H 05/01/24 15:27 75 19 98 05/01/24 15:27 187/89 H 05/01/24 15:06 75 21 99 05/01/24 14:59 194/85 H 05/01/24 14:47 187/96 H 05/01/24 14:42 68 05/01/24 14:38 96 Room Air 05/01/24 14:10 36.6 C 84 18 215/104 H 97 Room Air Code Status & VTE Plan Code Status Full code VTE Prophylaxis Plan VTE Prophylaxis will be ordered: Yes Supervising Physician Co-Signing Physician Notes I personally saw and examined the patient. I independently reviewed the labs, EKG, imaging, problem list, medication list, past medical history and family history. I verified all lynn points and agree with Malgorzata Mendoza PA-C with the following exceptions and/or additions: 88-year-old female presents to the ER with left-sided headache which she as sociates whenever her blood pressure is elevated with associated dizziness. No vision changes. 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 No chest pain or shortness of breath despite pulmonary edema on CXR. O/E A&Ox3, HS RRR, no murmurs, Chest CTAB, Abdo SNT, no pedal edema A/P Hypertensive emergency - headache, dizziness, confusion concerning for hypertensive encephalopathy in addition to pulmonary edema possibly the result of uncontrolled hypertension. Symptoms improved with hydralazine and Lasix given in the ER. Multiple "allergies" to beta-blockers, spironolactone and amlodipine. Previously tolerated chlorthalidone well without hyponatremia for years up until recent episode therefore high chance she can tolerate this again but will need close attention on follow up. TTE to assess for end organ damage (although troponin normal) and assess for cardiomyopathy given mild pulmonary edema on CXR. PG Care Time/CCT Total # of Minutes Spent Total Time Spent with Patient: Total time spent is greater than 50% in coordination of care (as documented) at patient's floor/unit and/or counseling patient: Coding Level of Care Code None Diagnoses Hypertensive emergency I16.1 GERD (gastroesophageal reflux disease) K21.9 Anxiety state F41.1
[2024-05-01] MEDS: LORazepam 0.5 MG TAB PO PRN (18:25)
[2024-05-01] MEDS: LOSARTAN POTASSIUM 25 MG TAB PO ONE ×2 (19:11→20:57)
[2024-05-01] MEDS: LOSARTAN POTASSIUM 50 MG TAB PO STA (19:12)
[2024-05-01] MEDS ORDERED: hydrALAZINE HCL 20 MG/ML VIAL IV PRN (21:24)
--- NOTE | 2024-05-01 22:04 | Billing Data ---
Date of Service May 01, 2024 Coding Level of Care Code 21879 INT INP/OBS CARE
[2024-05-01] MEDS: hydrALAZINE 10 MG TAB PO SCH (23:56)
[2024-05-02 07:26] LABS: Hematocrit (blood only) 28.5 % (37.0-47.0); Hemoglobin 9.4 g/dl (12.0-16.0); Mean Corpuscular Hemoglobin 29.6 pg (25.0-34.0); Mean Corpuscular Volume 89.6 fL (80.0-100.0); Mean Platelet Volume 11.2 fL (9.4-12.4); Platelet Count 262 K/uL (130-400); RDW Coefficient of Variation 13.2 % (11.5-14.5); RDW Standard Deviation 43.8 fL (36.4-46.3); Red Blood Count 3.18 M/uL (4.20-5.40)
[2024-05-02 07:35] LABS: Calcium 8.4 mg/dl (8.6-10.3); Creatinine Clr Calc Pharmacy 33.6 ml/min; Est GFR (African American) 58.3 ml/min; Est GFR (Non-African American) 50.3 ml/min; Potassium 3.6 mmol/L (3.5-5.1)
[2024-05-02] MEDS: hydrALAZINE 10 MG TAB PO SCH ×2 (08:43→11:36)
[2024-05-02] MEDS: POTASSIUM CHLORIDE 10 MEQ TABCR PO SCH (08:43)
[2024-05-02] MEDS: LOSARTAN POTASSIUM 25 MG TAB PO SCH (08:44)
[2024-05-02] MEDS: FAMOTIDINE 20 MG TAB PO SCH (08:44)
[2024-05-02] MEDS ORDERED: CHLORTHALIDONE 25 MG TAB PO SCH (09:00)
[2024-05-02] MEDS: FUROSEMIDE 20 MG TAB PO SCH (09:58)
--- NOTE | 2024-05-02 10:48 | Electrocardiogram Report ---
Test Reason : Blood Pressure : */* mmHG Vent. Rate : 77 BPM Atrial Rate : 77 BPM P-R Int : 190 ms QRS Dur : 74 ms QT Int : 364 ms P-R-T Axes : 67 64 75 degrees QTcB Int : 411 ms Normal sinus rhythm Possible Left atrial enlargement Nonspecific ST abnormality Abnormal ECG When compared with ECG of 14-Apr-2024 17:30, Premature ventricular complexes are no longer Present Premature supraventricular complexes are no longer Present Confirmed by Chuck Huggins ([id number]) on 05/02/2024 10:48:36 AM Referred By: REFERRED SELF Confirmed By: Chuck Huggins
--- NOTE | 2024-05-02 11:14 | XCELERA ---
[id number]
[2024-05-02] MEDS: KETOROLAC TROMETHAMINE 15 MG/ML VIAL IV ONE (11:35)
[2024-05-02] MEDS: ACETAMINOPHEN 500 MG TAB PO ONE (11:35)
[2024-05-02 11:56] VITALS: RESP 18; TEMP 97.9; O2SAT 97
[2024-05-02] MEDS: PROCHLORPERAZINE MALEATE 5 MG TAB PO ONE (12:06)
[2024-05-02 12:54] VITALS: BP 146/63
[2024-05-02] MEDS: VALPROATE SOD 500 MG in DEXTROSE 5% 50 ML IV ONE (15:07)
[2024-05-02 15:24] VITALS: PULSE 70
--- NOTE | 2024-05-02 17:06 | Discharge Summary ---
Discharge Summary Date of Service May 02, 2024 Principal Dx & Hospital Course #1 = Principal Diagnosis (1) Hypertensive emergency: 88-year-old woman who presented with ongoing left-sided headache for days associated with severe hypertension much worse than her baseline and she is unable to bring it below the 200s despite taking her medications. admitted for hypertensive emergency - systolic blood pressure max was 205/91 with headache, dizziness, confusion concerning for hypertensive encephalopathy in addition to pulmonary edema. Symptoms improved with hydralazine and Lasix given in the ER. she used to be on chlorthalidone which was discontinued a few weeks ago after she presented with sodium of 122 resumed her usual antihypertensive regimen of oral hydralazine and losartan which she takes on an unorthodox schedule divided multiple times daily. I did discuss with her that the losartan can be dosed daily or at most twice daily regimen selection is complicated by multiple intolerances and allergies I think she would benefit from low-dose diuretic, said to be intolerant or allergic to spironolactone, started low-dose oral Lasix 20 mg daily with potassium supplement. This should be less likely to provoke hyponatremia. Would recommend a chemistry panel upon follow-up in primary care Blood pressure came under good control on the above medications she was monitored throughout the day and remained in the range of 145-170/60s-70s TTE was obtained and was notable for normal LV systolic function EF 60-65%, normal valves, elevated RVSP at 50-60 mm, normal central venous pressure at the time of that study which was following Lasix. There was no comment on diastolic function (2) GERD (gastroesophageal reflux disease): - continue home Pepcid (3) Anxiety state: - continue home lorazepam as needed - it certainly seems that anxiety provokes some of her hypertensive episodes, she seems to have a habit of checking her blood pressure multiple times per day and during the night - consider adding SSRI for generalized anxiety, defer to primary care Plan headacheshe did have some persisted left-sided headache or left eye pain despite control of her blood pressure. Considered migraine and tried treatment with IV Toradol, acetaminophen, and oral Compazine but that did not improve her symptoms. Offered dose of IV Depakote which she declined. Consider triptan but I am hesitant to use that in an 88-year-old with respect to cerebrovascular risk. She thinks that this pain is eye pain related to her usual trigeminal neuralgia flares. Her vision is not affected. the other presenting symptoms listed above had resolved. Notes For Next Care Provider Please check BMP upon follow up - history of hyponatremia, initiation of furosemide Consider adding SSRI for generalized anxiety Medication Changes From Visit Added furosemide 20 mg daily and potassium 10 meq daily Admission HPI Per Admitting Provider Patient is an 88 year old female with a past medical history of GERD, anxiety, macular degeneration, and diverticulitis. She presented today due to ongoing elevated blood pressure and a headaches. She stated that the past few days her blood pressure has been elevated. She stated that the systolic blood pressure has been in the 200s and the lowest it has gotten was 183/98. Last night she said that her blood pressure would not go down and she had an ongoing headache with neck pain that kept her up throughout the night. She has left eye pain with the headache along with dizziness and lightheadedness. She denies chest pain, shortness of breath, numbness, and tingling. She has been taking her hydralazine 4 times a day, 15mg for the morning and evening dose, and 10 mg at noon and 1500. She also takes losartan 25 mg 4 times daily. During admission in March 2024, chlorthalidone was discontinued due to hyponatremia. Patient denies lower extremity edema since discontinuing. She stated that she took t his due to ongoing wheezing for 3 years, she denies history of CHF and chronic edema. She denies a history of COPD, asthma, arrhythmia, cancer. She does not smoke tobacco or use alcohol. She denies sore throat, cough, chest pain, shortness of breath, dysuria, hematuria, abdominal pain, nausea, diarrhea, constipation, lightheadedness, dizziness, numbness, tingling, and edema. She wishes to be full code and her POA is her daughter. She has a living will. Discharge Plan Discharge Items Patient Disposition: Home - Self-Care Reason For Visit: HYPERTENSION Discharge Diagnosis: uncontrolled hypertension Activity: Resume your previous activity Non-emergency contact: Primary Care Provider Call non-emergency contact if: you have any medication questions and your symptoms worsen Follow-up/Referrals: Jose Armando Marroquin, [Primary Care Provider] - 05/15/24 1:30 pm (PCP follow up: 05/15 @ 1:30 with Leanne Aguilar P/A) Diet: Regular Addtl Attending Provider Instructions: You were treated for severe high blood pressure BP is much better today Your heart Echo was ok You were fluid overloaded in the ED so being on a water pill / diuretic daily will help your BP and may help your breathing at night Keep taking your losartan and hydralazine Try taking furosemide (AKA lasix) - we give this with potassium supplement. This is a diuretic and it should not drop your blood sodium level as much as the chlorthalidone Follow up with Dr. Marroquin in 1-2 weeks and have him check your labs (chemistry panel) Pending Studies at Discharge: No Stand-Alone Forms: My [facility] [employer], Smoking Cessation Medications and DC Order Prescriptions: New furosemide 20 mg Tablet 20 mg PO QAM Qty: 30 0RF potassium chloride 10 mEq Tablet,Er Particles/Crystals 10 meq PO DAILY Qty: 30 0RF Continued famotidine [Pepcid] 20 mg tablet 20 mg PO QAM Qty: 90 3RF hydrocortisone 2.5 % ointment 1 applic topical BID PRN (Reason: skin irritation) Qty: 28.35 1RF lorazepam 0.5 mg tablet 0.5 mg PO DAILY PRN (Reason: anxiety) Qty: 30 0RF ascorbic acid (vitamin C) 60 mg Lozenge 60 mg PO QAM PreserVision AREDS-2 250-90-40-1 mg Capsule 1 tab PO QAM clindamycin phosphate 1 % gel 1 applic topical DAILY PRN (Reason: .flare ups) clobetasol 0.05 % ointment 1 applic topical BID PRN (Reason: flare ups) hydralazine 10 mg tablet See Rx Instructions .ROUTE .COMPLEX Rx Instructions: Patient states that she takes this as follows: 15mg in the morning, 10mg at noon, 15mg early evening, 10mg at bedtime losartan 25 mg tablet 25 mg PO QID Rx Instructions: Per patient it's written for twie daily but she takes it 4 times daily Discharge Orders: Discharge Order (Routine); Ordered 05/02/24 Ordered By: Katalina Godfrey Admission Data Admit Date/Time: 05/01/24 18:03 Attending Provider: Katalina Godfrey Admit Provider: Mode Watson Primary Care Provider: Jose Armando Marroquin Other Providers: Mode Watson Other Interventions: Discharge Summary Assessment (RN) Last Done: 05/02/24 15:23 Hospital Stay Data Consultations 05/01/24 17:23 ED Decision to Admit Stat Diagnostic Imagining Performed 05/01/24 14:28 CT head/brain wo con Stat Pending Results Patient Have Any Pending Studies at Discharge: No Discharge Instructions Given to Patient (Per Discharging Provider) You were treated for severe high blood pressure BP is much better today Your heart Echo was ok You were fluid overloaded in the ED so being on a water pill / diuretic daily will help your BP and may help your breathing at night Keep taking your losartan and hydralazine Try taking furosemide (AKA lasix) - we give this with potassium supplement. This is a diuretic and it should not drop your blood sodium level as much as the chlorthalidone Follow up with Dr. Marroquin in 1-2 weeks and have him check your labs (chemistry panel) Total Time Total Time Spent Total Time Spent (In Minutes): <30 Coding Level of Care Code 41932 IN/OBS DISCH 30 MIN/LESS Diagnoses Hypertensive emergency I16.1 GERD (gastroesophageal reflux disease) K21.9 Anxiety state F41.1
== END 2024-05-02 16:50 | disposition home or self-care (01) ==
LOC: ED 14:07 → 2E 14:07 → SUATTDRO 18:03 → 2E 21:43